=== PATIENT | male | born 1955 | race Caucasian/White ===

== ENCOUNTER 2018-08-31 08:25 | Emergency (ER) | payer SELFPAY ==
[2018-08-31 09:25] LABS: #Eosinphils 0.2 thou/uL (0.0-0.7); #Lymphocytes 1.2 thou/uL (1.20-3.40); #Monocytes 0.5 thou/uL (0.11-0.59); #Neutrophils 4.2 thou/uL (1.40-6.50); %Basophils 0.4 % (0.0-1.0); %Eosinophils 2.9 % (0.0-10.0); %Monocytes 8.5 % (0.0-10.0); %Neutrophils 68.3 % (42.0-75.0); Hemoglobin 17.6 g/dL (14.0-18.0); Mean Corpuscular HGB CONC 32.5 g/dL (32.0-36.0); Mean Corpuscular Volume 95.6 fL (78.0-98.0); Mean Platelet Volume 6.9 fL (7.4-10.4); Platelet Count 271 thou/uL (130-400); RBC Distribution Width 12.8 % (11.5-14.5); Red Blood Cell (RBC) Count 5.66 mill/uL (4.70-6.10); White Blood Cell (WBC) Count 6.2 thou/uL (4.8-10.8)
[2018-08-31 09:48] LABS: ALT (SGPT) 29 U/L (8-55); AST (SGOT) 31 U/L (5-34); Albumin 4.5 g/dL (3.4-4.8); Alkaline Phosphatase 78 U/L (40-150); Anion Gap 12 mmol/L (10-20); BUN (Urea Nitrogen) 9 mg/dL (8.4-25.7); Bilirubin, Total 0.3 mg/dL (0.2-1.2); Calc. Creatinine Clearance 0 mL/min (70-130); Calcium 9.8 mg/dL (7.8-10.44); Carbon Dioxide 23 mmol/L (23-31); Chloride 106 mmol/L (98-107); Estimated GFR-MDRD Greater than 90; Globulin 3.6 g/dL (2.4-3.5); Glucose 98 mg/dL (80-115); Potassium 3.9 mmol/L (3.5-5.1); Protein, Total 8.1 g/dL (5.8-8.1); Sodium 137 mmol/L (136-145)
[2018-08-31] MEDS ORDERED: Clindamycin/D5W 600 mg/50 ml Premix Bag ONE (10:05)
--- NOTE | 2018-08-31 10:05 | RAD ---
FOUR VIEWS OF THE LEFT KNEE: DATE: 08/31/2018. COMPARISON: None. HISTORY: Peripheral vascular disease, not on the knee. FINDINGS: There is a round soft tissue density along the medial aspect of the left knee medial to the mediofemo ral condyle and medial tibial plateau. Lateral exam demonstrates no knee joint effusion. There is p atellofemoral joint space narrowing with mild posterior patellar osteophyte formation. There is mode rate lateral compartment narrowing and severe medial compartment narrowing. IMPRESSION: 1. Soft tissue mass density along the medial aspect of left knee measuring in the 2.8 x 10.5 cm rang e. This could be on the basis of neoplasia or an inflammatory/infectious process. Hematoma is a pos sibility as well. 2. No evidence for acute fracture or dislocation. Degenerative changes as detailed above. 3. MRI of the left knee is suggested for further assessment. CODE T POS: [facility]
--- NOTE | 2018-08-31 11:32 | CT ---
CT OF THE LEFT LOWER EXTREMITY WITH CONTRAST: INDICATION: Pain when walking, palpable knot/mass of the left lower extremity. FINDINGS: There is a multiloculated cystic mass of the medial left lower extremity centered about the region of the knee which does arise, interposed between the medial head of the gastrocnemius ad the semimembra nosus in a location typical for Jordan's cyst. Surrounding soft tissue edema is present. There is a thin linear hyperdensity of the wall ad septae indicating enhancement, although no mass-like internal nodular enhancement is present within the cystic mass. There is osseous degenerative change. There is vascular calcification. There is a small ossification just medial to the cystic mass measuring a pproximately 8 mm which may represent the flabella. 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 POS: [facility]
[2018-08-31] MEDS ORDERED: ISOVUE-370 76%-LOCM 1 ML ONE (15:13)
== END 2018-08-31 11:53 | disposition home or self-care (01) ==
LOC: ERS 08:25
DX: M71.22 Synovial cyst of popliteal space [Baker], left knee (principal); L03.115 Cellulitis of right lower limb; E03.9 Hypothyroidism, unspecified; E78.5 Hyperlipidemia, unspecified; I10 Essential (primary) hypertension; F41.9 Anxiety disorder, unspecified; F31.9 Bipolar disorder, unspecified; F20.9 Schizophrenia, unspecified; Z86.718 Personal history of other venous thrombosis and embolism
CPT/HCPCS: 80053; 85025; 96365; J3490

== ENCOUNTER 2018-10-17 10:07 | Inpatient (IN) | payer SELFPAY ==
[2018-10-17] MEDS ORDERED: Morphine 4 MG/ML VIAL ONE (10:52)
[2018-10-17] MEDS ORDERED: Morphine 2 MG/ML SYRINGE ONE (10:54)
[2018-10-17 10:57] LABS: #Basophils 0.1 thou/uL (0.0-0.2); #Eosinphils 0.1 thou/uL (0.0-0.7); #Lymphocytes 1.9 thou/uL (1.20-3.40); #Monocytes 0.9 thou/uL (0.11-0.59); #Neutrophils 6.2 thou/uL (1.40-6.50); %Basophils 0.6 % (0.0-1.0); %Eosinophils 1.3 % (0.0-10.0); %Lymphocytes 21.1 % (21.0-51.0); %Monocytes 9.6 % (0.0-10.0); %Neutrophils 67.5 % (42.0-75.0); Hemoglobin 17.6 g/dL (14.0-18.0); Mean Corpuscular HGB CONC 32.5 g/dL (32.0-36.0); Mean Corpuscular Hemoglobin 30.3 pg (27.0-31.0); Mean Platelet Volume 6.5 fL (7.4-10.4); Platelet Count 319 thou/uL (130-400); RBC Distribution Width 12.7 % (11.5-14.5); Red Blood Cell (RBC) Count 5.82 mill/uL (4.70-6.10); White Blood Cell (WBC) Count 9.2 thou/uL (4.8-10.8)
[2018-10-17 11:17] LABS: Anion Gap 17 mmol/L (10-20); BUN (Urea Nitrogen) 9 mg/dL (8.4-25.7); Calc. Creatinine Clearance 0 mL/min (70-130); Calcium 9.5 mg/dL (7.8-10.44); Carbon Dioxide 16 mmol/L (23-31); Chloride 108 mmol/L (98-107); Estimated GFR-MDRD Greater than 90; Glucose 112 mg/dL (80-115); Potassium 3.8 mmol/L (3.5-5.1); Sodium 137 mmol/L (136-145)
[2018-10-17] MEDS ORDERED: MEROPENEM 1 GM/50 ML 1 GM in Premix Bag 1 BAG IVPB SCH ×2 (11:30→20:00)
--- NOTE | 2018-10-17 11:59 | RAD ---
RIGHT ANKLE 3 VIEWS: HISTORY: Non-healing wound to the ankle. COMPARISON: Ankle radiograph from 2009. FINDINGS: There is an old posterior malleolar fracture. There is a large wound on the lateral aspect of the di stal fibula. There is some periosteal reaction along the distal fibula laterally as well as the bila teral malleolar tip. There is mild medial soft tissue swelling. IMPRESSION: Chronic periosteal reaction of the lateral aspect of the distal fibula may be sequelae of chronic ost eomyelitis. Large overlying soft tissue ulcer. POS: [facility]
[2018-10-17 12:02] LABS: Bilirubin Negative (Negative); Blood, Urine Negative (Negative); Clarity CLEAR (Clear); Glucose, Urine (Dipstick) Negative (Negative); Leukocyte Negative (Negative); Nitrite Negative (Negative); Protein, Urine (Dipstick) Negative (Neg-Trace); Specific Gravity, Urine 1.001 (1.002-1.036); Urobilinogen 0.2 mg/dL (0.2-1.0); pH, Urine 6.5 (5.0-9.0)
[2018-10-17 12:49] VITALS: BMI 28.4
[2018-10-17] MEDS ORDERED: Ondansetron ODT 4 MG TAB SL PRN (12:52)
[2018-10-17] MEDS ORDERED: Ondansetron PF 4 MG/2 ML Vial IVP PRN ×2 (12:52→13:01)
[2018-10-17] MEDS ORDERED: Acetaminophen 325 MG TAB PO PRN ×2 (12:52→13:01)
[2018-10-17] MEDS ORDERED: Sodium Chloride 0.9% 1,000 ML IV SCH (12:52)
[2018-10-17] MEDS ORDERED: Bisacodyl 10 MG SUPP PR PRN (13:01)
[2018-10-17] MEDS ORDERED: Cepastat Lozenges 1 LOZ PO PRN (13:01)
[2018-10-17] MEDS ORDERED: Eucerin (Mineral Oil/Petrolatum,White) 30 gm Jar TOP PRN (13:01)
[2018-10-17] MEDS ORDERED: hydrALAZINE 20 MG/ML VIAL SLOW IVP PRN (13:01)
[2018-10-17] MEDS ORDERED: Senokot S 8.6-50 MG TAB PO PRN (13:01)
[2018-10-17] MEDS ORDERED: Loperamide HCl 2 MG CAP PO PRN (13:01)
[2018-10-17] MEDS ORDERED: Ondansetron ODT 4 MG TAB PO PRN (13:01)
[2018-10-17] MEDS ORDERED: Diabetic Tussin 200 MG/10 ML UDCUP PO PRN (13:01)
[2018-10-17] MEDS ORDERED: Artificial Tears 18 DROP/0.9 ML EA EYE PRN (13:01)
[2018-10-17] MEDS ORDERED: Bisacodyl 5 MG TAB PO PRN (13:01)
[2018-10-17] MEDS ORDERED: Sodium Chloride 0.65% Nasal 44 ML BOT EA NARE PRN (13:01)
[2018-10-17] MEDS ORDERED: Zolpidem Tartrate 5 MG TAB PO PRN (13:01)
[2018-10-17] MEDS ORDERED: Calcium Carbonate 500 MG ChewTAB PO PRN (13:01)
[2018-10-17] MEDS ORDERED: Loratadine 10 MG TAB PO PRN (13:01)
[2018-10-17] MEDS ORDERED: Vancomycin HCl 1 GM in Premix Bag 1 BAG IVPB SCH (13:30)
--- NOTE | 2018-10-17 13:42 | HP ---
PRIMARY CARE PHYSICIAN: City call admission. REASON FOR ADMISSION: Right ankle bimalleolar ulcer, nonhealing with surrounding cellulitis. HISTORY OF PRESENT ILLNESS: A 63-year-old male who has a history of varicose veins, who presented to emergency room for evaluation for worsening and nonhealing ulcer on bimalleolar site on the right si de. Patient has a significant amount of pain and propping in his ankle for the last one week and bec ause of that, he has difficulty ambulating. The patient is doing routine wound care at home by himse lf, but condition is getting deteriorated. He also noticed erythema and surrounding swelling and ten derness on bilateral and medial side of ankle on the right side. He was feeling subjective feverish, but he denies any chills. He denies any associated nausea or vomiting. He has not measured his tem perature, so he is not able to tell me about the fever. Patient is following [facility]. Th e patient is not able to follow wound care team. In the emergency room, this patient had ankle x-ray which showed chronic periosteal reaction of the l ateral aspect of distal fibula and concerning for chronic osteomyelitis and large overlying soft tiss ue ulcer. This patient reports that ulcer was gradually getting weaker and now draining serosanguine ous and sometimes purulent fluid. His intensity of pain is about 10/10 getting worse with walking. There is no specific relieving factor. In the emergency room, pain medication was given that helped his pain. He denies any trauma. He denies any insect bite. He denies any similar problem in the tx st. REVIEW OF SYSTEMS: The following complete review of systems was negative, unless otherwise mentioned in the HPI or below: Constitutional: Weight loss or gain, ability to conduct usual activities. Skin: Rash, itching. Eyes: Double vision, pain. ENT/Mouth: Nose bleeding, neck stiffness, pain, tenderness. Cardiovascular: Palpitations, dyspnea on exertion, orthopnea. Respiratory: Shortness of breath, wheezing, cough, hemoptysis, fever or night sweats. Gastrointestinal: Poor appetite, abdominal pain, heartburn, nausea, vomiting, constipation, or diarr hea. Genitourinary: Urgency, frequency, dysuria, nocturia. Musculoskeletal: Pain, swelling. Neurologic/Psychiatric: Anxiety, depression. Allergy/Immunologic: Skin rash, bleeding tendency. Please see my HPI for pertinent positive and negative. All other review of systems reviewed and nega tive except as mentioned in the HPI. EMERGENCY ROOM COURSE: Patient has received meropenem 1 gram, vancomycin 1 gram, IV fluid 1 liter an d morphine 4 mg. PAST MEDICAL HISTORY: Hypertension, dyslipidemia, history of varicose vein, history of alcohol abuse , history of dipping tobacco, hypothyroidism. PAST SURGICAL HISTORY: Reviewed and negative. PAST PSYCHIATRIC HISTORY: Anxiety, depression, schizophrenia, bipolar disorder. SOCIAL HISTORY: Patient used to smoke about 1 pack per day. He reports that he quit smoking 10 year s ago, but currently he chews tobacco. He used to drink alcohol in past, but he also reports that he now quit drinking alcohol as well. He denies any other illicit drug abuse. ALLERGIES: No known drug allergy. CURRENT HOME MEDICATIONS: The patient does not have any medication with him, so unable to verify his home medication; however, as per our hospital record from 2013, patient was on Celexa 40 mg p.o. moreno ly, Synthroid 50 mcg p.o. daily, Lopressor 12.5 mg twice daily, Zocor 40 mg p.o. at bedtime. FAMILY HISTORY: Mother had breast cancer, but no family history of coronary artery disease or stroke . PHYSICAL EXAMINATION: VITAL SIGNS: On arrival, blood pressure 164/118, pulse 101, respiratory rate 20, temperature 97.4, s aturation 96% on room air, weight 99.7 kilograms. GENERAL: Patient is currently alert, awake, no obvious acute distress. HEAD: Normocephalic, atraumatic. EYES: Pupils round, reactive to light. Extraocular muscle intact. ENT: Oropharynx within normal limits. Moist mucous membranes, no oral lesion, no pharyngeal erythem a, no exudate. NECK: Supple, no JVD, no thyromegaly, no carotid bruit, no jugular venous distention. LUNGS: Clear to auscultation without any rhonchi or rales. CARDIAC: S1, S2 regular. No murmur, no gallop, no rub. ABDOMEN: Soft, bowel sounds present, nontender, nondistended. No organomegaly, no mass, no suprapub ic tenderness. BACK: Examination unremarkable, no CVA tenderness. EXTREMITIES: Upper extremity passive movements of all joints are normal. Lower extremity, left lowe r extremity within normal limits without any skin lesion, but right lower extremity patient has large 5 x 5 cm ulcer on both malleoli with surrounding cellulitis/stasis dermatitis. NEUROLOGIC: Patient is alert, oriented x3. Cranial nerves II-XII intact. Motor and sensation withi n normal limits. No focal neurological deficits. Speech normal. SKIN: No skin rash other than surrounding erythema, tenderness on both malleoli of right foot. ABDOMEN: Soft and benign without any tenderness. 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 CBC: WBC 9.2, hemoglobin 17.6, platelet 3 19. ESR 14. BMP: Sodium 137, potassium 3.8, BUN 9, creatinine 0.84, calcium 9.5, CRP less than 0.5 0. Lactic acid 2.3. Urinalysis normal. ASSESSMENT AND PLAN/IMPRESSION: 1. Right ankle bimalleolar ulcer, nonhealing with the surrounding cellulitis. Patient will require admission. He will need wound care team evaluation. Dr. Tejada will be consulted to evaluate for pos sible need of surgical debridement versus further evaluation. We will obtain ultrasound of both lowe r extremities to rule out any peripheral arterial disease and to see if patient needs any further rev ascularization, but suspecting venous problem. At this point, patient will be given broad spectrum a ntibiotic therapy, meropenem 1 gram IV q.8 hours., vancomycin as per pharmacy adjusted dose and we wi ll continue morphine for pain control. 2. Lactic acidosis, likely due to associated skin and soft tissue infection with sepsis. We will re peat lactic acid tomorrow. 3. Hypothyroidism. Once we verify the patient's home medication and we will resume Synthroid. 4. Hypertension. We will start lisinopril 5 mg p.o. daily and metoprolol 25 mg p.o. twice daily. 5. Dyslipidemia. We will start Zocor 40 mg p.o. at bedtime. 6. Anxiety and depression. Once we verify the patient's home medication, then we will resume antide pressant medication. 7. Lactic acidosis. We will repeat lactic acid tomorrow. 8. Concern of chronic osteomyelitis. Dr. Tejada is consulted. At this point, ESR and CRP is within normal limits. I doubt patient has any bony infection, but cannot be entirely excluded. 9. Deep venous thrombosis prophylaxis, Lovenox 40 mg subcu daily. 10. Gastrointestinal prophylaxis, Pepcid 20 mg p.o. b.i.d. 11. Code status: The patient is FULL CODE. Patient does not have any surrogate decision maker. 12. Tobacco abuse with the dipping smoking cessation as well as some counseling given to avoid tobac co products. Disposition plan based on clinical course. We are expecting patient's stay in hospital more than 2 m idnights. Plan of care discussed with the patient in detail.
[2018-10-17] MEDS ORDERED: Meropenem 1 GM in Sodium Chloride 0.9% 100 ML IVPB SCH (14:00)
[2018-10-17] MEDS: HYDROcodone/Acetaminophen 5/325 mg Tablet PO PRN ×2 (14:16→23:54)
[2018-10-17 15:13] LABS: Lactic Acid 2.4 mmol/L (0.5-2.2)
[2018-10-17] MEDS: Morphine 4 MG/ML VIAL SLOW IVP PRN (18:12)
[2018-10-17] MEDS: MEROPENEM 1 GM/50 ML 1 GM in Premix Bag 1 BAG IVPB SCH (20:00)
[2018-10-17] MEDS: Famotidine 20 MG TAB PO SCH (20:03)
[2018-10-18] MEDS: MEROPENEM 1 GM/50 ML 1 GM in Premix Bag 1 BAG IVPB SCH ×3 (05:06→20:47)
[2018-10-18 05:39] LABS: #Basophils 0.1 thou/uL (0.0-0.2); #Eosinphils 0.3 thou/uL (0.0-0.7); #Lymphocytes 1.4 thou/uL (1.20-3.40); #Monocytes 0.6 thou/uL (0.11-0.59); #Neutrophils 3.9 thou/uL (1.40-6.50); %Eosinophils 4.1 % (0.0-10.0); %Lymphocytes 22.3 % (21.0-51.0); %Monocytes 10.1 % (0.0-10.0); %Neutrophils 62.4 % (42.0-75.0); Hemoglobin 16.7 g/dL (14.0-18.0); Mean Corpuscular HGB CONC 33.2 g/dL (32.0-36.0); Mean Corpuscular Hemoglobin 30.8 pg (27.0-31.0); Mean Corpuscular Volume 92.6 fL (78.0-98.0); Mean Platelet Volume 6.9 fL (7.4-10.4); Platelet Count 279 thou/uL (130-400); RBC Distribution Width 12.5 % (11.5-14.5); Red Blood Cell (RBC) Count 5.44 mill/uL (4.70-6.10); White Blood Cell (WBC) Count 6.2 thou/uL (4.8-10.8)
[2018-10-18 05:57] LABS: Lactic Acid 0.8 mmol/L (0.5-2.2)
[2018-10-18 06:06] LABS: ALT (SGPT) 13 U/L (8-55); AST (SGOT) 15 U/L (5-34); Albumin 3.4 g/dL (3.4-4.8); Alkaline Phosphatase 74 U/L (40-150); Anion Gap 11 mmol/L (10-20); BUN (Urea Nitrogen) 7 mg/dL (8.4-25.7); Bilirubin, Total 0.7 mg/dL (0.2-1.2); Calc. Creatinine Clearance 141 mL/min (70-130); Calcium 8.7 mg/dL (7.8-10.44); Carbon Dioxide 23 mmol/L (23-31); Chloride 108 mmol/L (98-107); Estimated GFR-MDRD Greater than 90; Globulin 3.2 g/dL (2.4-3.5); Glucose 106 mg/dL (80-115); Potassium 3.7 mmol/L (3.5-5.1); Protein, Total 6.6 g/dL (5.8-8.1); Sodium 138 mmol/L (136-145)
[2018-10-18] MEDS: Enoxaparin Sodium 40 MG/0.4 ML SYRINGE SC SCH (07:33)
[2018-10-18] MEDS: Saccharomyces boulardii 250 MG CAP PO SCH (07:34)
[2018-10-18] MEDS: Famotidine 20 MG TAB PO SCH ×2 (07:34→20:48)
[2018-10-18] MEDS: HYDROcodone/Acetaminophen 5/325 mg Tablet PO PRN ×4 (07:39→23:43)
[2018-10-18] MEDS: Morphine 4 MG/ML VIAL SLOW IVP PRN ×4 (07:41→20:50)
--- NOTE | 2018-10-18 10:50 | PDOC.PN ---
- Subjective Encounter Start Date: 10/18/18 Encounter Start Time: 09:50 -: old records requested/rev Patient seen and examined. No new complaints. No overnight events today he has less pain at right ankle, no fever - Objective Resuscitation Status: Resuscitation Status FULL:Full Resuscitation MAR Reviewed: Yes Vital Signs & Weight: Vital Signs (12 hours) Temp Pulse Resp BP Pulse Ox 10/18/18 08:00 96 10/18/18 07:46 97.7 F 68 20 147/89 H 96 Weight Weight 218 lb 11.2 oz I&O: 10/17/18 10/18/18 10/19/18 06:59 06:59 06:59 Intake Total 1400 Output Total 1450 Balance -50 Result Diagrams: 10/18/18 04:41 10/18/18 04:41 Radiology Reviewed by me: Yes Phys Exam - Physical Examination Constitutional: NAD HEENT: PERRLA, moist MMs, sclera anicteric Neck: no JVD, supple Respiratory: no wheezing, no rales, no rhonchi Cardiovascular: RRR, no significant murmur, no rub Gastrointestinal: soft, non-tender, no distention, positive bowel sounds right ankle dressing+ Neurological: non-focal, normal sensation, moves all 4 limbs Lymphatic: no nodes Psychiatric: normal affect, A&O x 3 Skin: no rash, normal turgor Dx/Plan (1) Cellulitis of right ankle Code(s): L03.115 - CELLULITIS OF RIGHT LOWER LIMB Status: Acute (2) Lactic acidosis Code(s): E87.2 - ACIDOSIS Status: Acute (3) Non-healing ulcer of ankle Code(s): L97.309 - NON-PRESSURE CHRONIC ULCER OF UNSP ANKLE WITH UNSP SEVERITY Status: Acute (4) Anxiety and depression Code(s): F41.9 - ANXIETY DISORDER, UNSPECIFIED; F32.9 - MAJOR DEPRESSIVE DISORDER, SINGLE EPISODE, UNSPECIFIED Status: Chronic (5) Dyslipidemia Code(s): E78.5 - HYPERLIPIDEMIA, UNSPECIFIED Status: Chronic (6) Hypertension Code(s): I10 - ESSENTIAL (PRIMARY) HYPERTENSION Status: Chronic (7) Hypothyroidism Code(s): E03.9 - HYPOTHYROIDISM, UNSPECIFIED Status: Chronic (8) PVD (peripheral vascular disease) Code(s): I73.9 - PERIPHERAL VASCULAR DISEASE, UNSPECIFIED Status: Chronic (9) Tobacco chew use Code(s): Z72.0 - TOBACCO USE Status: Chronic - Plan cont current plan of care, continue antibiotics * US arterial doppler result pending * medication reviewed as below * symptomatic treatment * continue meropenam and vancomycin * wound care * ID consulted. Review of Systems - Review of Systems ENT: negative: Ear Pain, Ear Discharge, Nose Pain, Nose Discharge, Nose Congestion, Mouth Pain, Mouth Swelling, Throat Pain, Throat Swelling, Other Respiratory: negative: Cough, Dry, Shortness of Breath, Hemoptysis, SOB with Excertion, Pleuritic Pain, Sputum, Wheezing Cardiovascular: negative: chest pain, palpitations, orthopnea, paroxysmal nocturnal dyspnea, edema, light headedness, other Gastrointestinal: negative: Nausea, Vomiting, Abdominal Pain, Diarrhea, Constipation, Melena, Hematochezia, Other Genitourinary: negative: Dysuria, Frequency, Incontinence, Hematuria, Retention , Other Musculoskeletal: Foot Pain. negative: Neck Pain, Shoulder Pain, Arm Pain, Back Pain, Hand Pain, Leg Pain, Other Skin: negative: Rash, Lesions, Timo, Bruising, Other - Medications/Allergies Allergies/Adverse Reactions: Allergies Allergy/AdvReac Type Severity Reaction Status Date / Time No Known Allergies Allergy Verified 10/17/18 12:56 Medications: Current Medications Acetaminophen (Tylenol) 650 mg PO Q4H PRN PRN Reason: Headache/Fever/Mild Pain (1-3) Hydrocodone Bitart/Acetaminophen ([place] 5/325) 1 tab PO Q4H PRN PRN Reason: Moderate Pain (4-6) Last Admin: 10/18/18 07:39 Dose: 1 tab Artificial Tears (Tears Naturale) 2 drop EA EYE PRN PRN PRN Reason: Dry Eyes Bisacodyl (Dulcolax) 10 mg PO DAILYPRN PRN PRN Reason: Constipation Bisacodyl (Dulcolax) [address] DAILYPRN PRN PRN Reason: Constipation Calcium Carbonate (Tums) 1,000 mg PO Q4H PRN PRN Reason: Heartburn or Indigestion Enoxaparin Sodium (Lovenox) 40 mg SC 0900 [facility] Last Admin: 10/18/18 07:33 Dose: 40 mg Famotidine (Pepcid) 20 mg PO BID [facility] Last Admin: 10/18/18 07:34 Dose: 20 mg Guaifenesin (Robitussin Sf) 200 mg PO Q4H PRN PRN Reason: Cough Hydralazine HCl (Apresoline) 10 mg SLOW IVP Q4H PRN PRN Reason: SBP > 180 and HR < 70 Meropenem 1 gm/ Device 50 mls @ 100 mls/hr IVPB 0400,1200,2000 [facility] Last Admin: 10/18/18 05:06 Dose: 50 mls Vancomycin HCl 2 gm/ Sodium (Chloride) 500 mls @ 250 mls/hr IVPB 1100,2300 [facility] Last Admin: 10/18/18 10:34 Dose: 500 mls Loperamide HCl (Imodium) 2 mg PO PRN PRN PRN Reason: Diarrhea/Loose Stools Loratadine (Claritin) 10 mg PO DAILYPRN PRN PRN Reason: Sinus Symptoms Mineral Oil/White Petrolatum (Eucerin Cream) 0 gm TOP BIDPRN PRN PRN Reason: Dry Skin Miscellaneous Medication (Pharmacy To Dose) 1 each IVPB ONE PRN PRN Reason: Pharmacy to dose Stop: 10/27/18 13:02 Morphine Sulfate (Morphine) 4 mg SLOW IVP Q2H PRN PRN Reason: Pain Last Admin: 10/18/18 07:41 Dose: 4 mg Ondansetron HCl (Zofran Odt) 4 mg PO Q6H PRN PRN Reason: Nausea/Vomiting Ondansetron HCl (Zofran) 4 mg IVP Q6H PRN PRN Reason: Nausea/Vomiting Saccharomyces Boulardii (Florastor) 250 mg PO DAILY [facility] Last Admin: 10/18/18 07:34 Dose: 250 mg Senna/Docusate Sodium (Senokot S) 2 tab PO BID PRN PRN Reason: Constipation Sodium Chloride ([place] Nasal [employer] 0.65%) 0 ml EA NARE QIDPRN PRN PRN Reason: Nasal Congestion Throat Lozenges (Cepastat Lozenges) 1 debra PO Q2H PRN PRN Reason: Sore Throat Zolpidem Tartrate (Ambien) 5 mg PO HSPRN PRN PRN Reason: Insomnia
--- NOTE | 2018-10-18 21:16 | CON ---
REASON FOR CONSULTATION: Ulcers, right ankle with questionable osteomyelitis. HISTORY OF PRESENT ILLNESS: A 63-year-old patient with history of hypertension and venous insufficiency with varicose veins, right lower extremity, alcoholism and prior ulcers in the right ankle, which have waxed and waned over the past few years. He usually has an ulcer in the medial aspect, but now has noticed another one in the right lateral malleolus region, very painful for the past few weeks. The patient was admitted because of the refractory nature of those ulcers, some erythema associated with it, low grade temperature elevation, but no chills. No headaches, visual symptoms, sore throat, odynophagia, dysphagia, no cough or sputum production or chest pain, no abdominal pain, diarrhea, or genitourinary symptoms. No neurological symptoms. PAST MEDICAL HISTORY: Hypertension, dyslipidemia, venous insufficiency with varicose veins, right lower extremity, alcoholism and former smoker. PAST SURGICAL HISTORY: Negative. SOCIAL HISTORY: Former smoker. ALLERGIES: None. FAMILY HISTORY: Breast cancer. CURRENT MEDICATIONS: [place], Dulcolax, Tums, Lovenox, Pepcid, Imodium, Claritin , meropenem, vancomycin PHYSICAL EXAMINATION: VITAL SIGNS: T-max 97.9, BP 140/89, pulse 68, respirations 18, O2 sat 95%. SKIN: Ulceration, medial and lateral malleolus, right leg, with a little bit of edge undermining and a yellow base surrounding rim of erythema about 3 cm, very painful, the patient is voiding in the urinal. No lymphadenopathy. HEENT: Ocular movements are conjugate. Oral cavity not remarkable. NECK: Supple, no jugular vein distention or carotid bruits, no thyromegaly. LUNGS: Symmetric. Clear breath sounds. HEART: S1, S2, regular rate. No S3 or S4. ABDOMEN: Soft, not distended or tender. No bladder distention, no organomegaly. EXTREMITIES: Pulses are 1+ in dorsalis pedis, and 1+ in popliteals. He is able to move extremities equally with some limitation due to the inflammatory process in the right side. NEUROLOGIC: Nonfocal. Cognitive function is intact. LABORATORY DATA: White cell count 9.2, hemoglobin 17.6, platelets 319 with a normal differential. Sodium 137, creatinine 0.84. Liver profile normal. Albumin 3.4. Urinalysis was fairly unremarkable. Wound culture with presumptive Pseudomonas aeruginosa. Two sets of blood cultures thus far no growth. Ankle x-ray, chronic periosteal reaction, lateral aspect of distal fibula. ASSESSMENT: Hypertension, venous insufficiency with recurring ulcerations in the right medial malleolus and now, ulcerations in both lateral and medial malleolus with pain and inflammatory changes and concern for early osteomyelitis of the fibula. We will order an MRI to clarify the issue of a deeper penetration of the inflammatory process. Wait on final results of cultures and determine the type and duration of antimicrobial therapy. He does not appear that he has any evidence of arterial insufficiency and most likely the ulcerations are secondary to venous insufficiency. In that regard, compression of the right leg would be important in the healing of the ulcer, but first we will have to improve the pain through treating the inflammatory process associated with cellulitis. USMAN
[2018-10-18 22:29] LABS: Vancomycin, Trough 18.4 ug/mL
[2018-10-19] MEDS: Morphine 4 MG/ML VIAL SLOW IVP PRN ×5 (04:43→18:02)
[2018-10-19] MEDS: MEROPENEM 1 GM/50 ML 1 GM in Premix Bag 1 BAG IVPB SCH ×3 (04:43→20:06)
[2018-10-19] MEDS: HYDROcodone/Acetaminophen 5/325 mg Tablet PO PRN ×3 (05:54→20:12)
[2018-10-19] MEDS: Saccharomyces boulardii 250 MG CAP PO SCH (08:17)
[2018-10-19] MEDS: Enoxaparin Sodium 40 MG/0.4 ML SYRINGE SC SCH (08:17)
[2018-10-19] MEDS: Famotidine 20 MG TAB PO SCH ×2 (08:17→20:07)
--- NOTE | 2018-10-19 08:20 | ULT ---
BILATERAL LOWER EXTREMITY ARTERIAL ULTRASOUND WITH DOPPLER: 10/17/18 HISTORY: Nonhealing ulcer in the right leg. COMPARISON: None. TECHNIQUE: Fuentes scale, color flow, doppler imaging with spectral waveform analysis performed to the left and rig ht lower extremity arterial system. FINDINGS: RIGHT LOWER EXTREMITY: There is triphasic flow in the common femoral artery, proximal mid and distal superficial femoral art cara, popliteal artery, anterior tibial artery, posterior tibial artery and dorsalis pedis artery. The re is monophasic flow in the profunda femoral artery. LEFT LOWER EXTREMITY: There is triphasic flow in the common femoral artery, proximal and mid superficial femoral artery, po pliteal artery, anterior tibial artery, posterior tibial artery. There is monophasic flow in the prof unda femoral artery. There is biphasic flow in the distal superficial femoral artery and dorsalis ped is artery. Left popliteal fossa, there is a complex hypoechoic focus measuring 4.7 x 4.5 x 6.4 cm. There appears to be a thickened septation. Correlate with previous CT from August 31, 2018. LOWER EXTREMITY VELOCITIES: RIGHT LOWER EXTREMITY Velocity (cm/s) Common femoral artery 175 Profunda femoral 108 SFA proximal 126 SFA mid 140 SFA distal 75 Popliteal artery 78 Anterior tibial artery 109 Posterior tibial artery 118 Dorsalis pedis artery 92 LEFT LOWER EXTREMITY: Common femoral artery 220 Profunda femoral 75 SFA proximal 96 SFA mid 120 SFA distal 61 Popliteal artery 96 Anterior tibial artery 46 Posterior tibial artery 100 Dorsalis pedis artery 27 IMPRESSION: 1. Monophasic flow suggesting significant stenosis in bilateral profunda femoral arteries. There is significant narrowing and stenosis in the left dorsalis pedis artery. 2. Findings suggesting significant stenosis in the distal left superficial femoral artery. POS: [facility]
[2018-10-19] MEDS ORDERED: Gadobenate Dimeglumine 529 MG/1 ML (20ML VIAL) ONE (11:57)
--- NOTE | 2018-10-19 12:50 | PDOC.PN ---
- Subjective Encounter Start Date: 10/19/18 Encounter Start Time: 07:00 Patient seen and examined. No new complaints. No overnight events pt feels better, he has less pain, no fever - Objective Resuscitation Status: Resuscitation Status FULL:Full Resuscitation MAR Reviewed: Yes Vital Signs & Weight: Vital Signs (12 hours) Temp Pulse Resp BP Pulse Ox 10/19/18 08:00 96 10/19/18 07:33 97.6 F 69 18 146/86 H 93 L Weight Weight 218 lb 11.2 oz I&O: 10/18/18 10/19/18 10/20/18 06:59 06:59 06:59 Intake Total 1400 3220 Output Total 1450 1300 Balance -50 1920 Result Diagrams: 10/18/18 04:41 10/18/18 04:41 Phys Exam - Physical Examination Constitutional: NAD HEENT: PERRLA, moist MMs, sclera anicteric Neck: no JVD, supple Respiratory: no wheezing, no rales, no rhonchi Cardiovascular: RRR, no significant murmur, no rub Gastrointestinal: soft, non-tender, no distention, positive bowel sounds Musculoskeletal: no edema, pulses present right ankle with dressing Neurological: non-focal, normal sensation, moves all 4 limbs Lymphatic: no nodes Psychiatric: normal affect, A&O x 3 Skin: no rash, normal turgor Dx/Plan (1) Cellulitis of right ankle Code(s): L03.115 - CELLULITIS OF RIGHT LOWER LIMB Status: Acute (2) Non-healing ulcer of ankle Code(s): L97.309 - NON-PRESSURE CHRONIC ULCER OF UNSP ANKLE WITH UNSP SEVERITY Status: Acute (3) Lactic acidosis Code(s): E87.2 - ACIDOSIS Status: Resolved (4) Anxiety and depression Code(s): F41.9 - ANXIETY DISORDER, UNSPECIFIED; F32.9 - MAJOR DEPRESSIVE DISORDER, SINGLE EPISODE, UNSPECIFIED Status: Chronic (5) Dyslipidemia Code(s): E78.5 - HYPERLIPIDEMIA, UNSPECIFIED Status: Chronic (6) Hypertension Code(s): I10 - ESSENTIAL (PRIMARY) HYPERTENSION Status: Chronic (7) Hypothyroidism Code(s): E03.9 - HYPOTHYROIDISM, UNSPECIFIED Status: Chronic (8) PVD (peripheral vascular disease) Code(s): I73.9 - PERIPHERAL VASCULAR DISEASE, UNSPECIFIED Status: Chronic (9) Tobacco chew use Code(s): Z72.0 - TOBACCO USE Status: Chronic - Plan cont current plan of care, continue antibiotics * medication reviewed as below * symptomatic treatment * continue meropenam and vancomycin * ID recommendation noted * will get MRI LE today * wound care * pain controlled. Review of Systems - Review of Systems ENT: negative: Ear Pain, Ear Discharge, Nose Pain, Nose Discharge, Nose Congestion, Mouth Pain, Mouth Swelling, Throat Pain, Throat Swelling, Other Respiratory: negative: Cough, Dry, Shortness of Breath, Hemoptysis, SOB with Excertion, Pleuritic Pain, Sputum, Wheezing Cardiovascular: negative: chest pain, palpitations, orthopnea, paroxysmal nocturnal dyspnea, edema, light headedness, other Gastrointestinal: negative: Nausea, Vomiting, Abdominal Pain, Diarrhea, Constipation, Melena, Hematochezia, Other Genitourinary: negative: Dysuria, Frequency, Incontinence, Hematuria, Retention , Other Musculoskeletal: negative: Neck Pain, Shoulder Pain, Arm Pain, Back Pain, Hand Pain, Leg Pain, Foot Pain, Other Skin: negative: Rash, Lesions, Timo, Bruising, Other - Medications/Allergies Allergies/Adverse Reactions: Allergies Allergy/AdvReac Type Severity Reaction Status Date / Time No Known Allergies Allergy Verified 10/17/18 12:56 Medications: Current Medications Acetaminophen (Tylenol) 650 mg PO Q4H PRN PRN Reason: Headache/Fever/Mild Pain (1-3) Hydrocodone Bitart/Acetaminophen ([place] 5/325) 1 tab PO Q4H PRN PRN Reason: Moderate Pain (4-6) Last Admin: 10/19/18 11:43 Dose: 1 tab Artificial Tears (Tears Naturale) 2 drop EA EYE PRN PRN PRN Reason: Dry Eyes Bisacodyl (Dulcolax) 10 mg PO DAILYPRN PRN PRN Reason: Constipation Bisacodyl (Dulcolax) 10 mg [place] DAILYPRN PRN PRN Reason: Constipation Calcium Carbonate (Tums) 1,000 mg PO Q4H PRN PRN Reason: Heartburn or Indigestion Enoxaparin Sodium (Lovenox) 40 mg SC 0900 [facility] Last Admin: 10/19/18 08:17 Dose: 40 mg Famotidine (Pepcid) 20 mg PO BID [facility] Last Admin: 10/19/18 08:17 Dose: 20 mg Guaifenesin (Robitussin Sf) 200 mg PO Q4H PRN PRN Reason: Cough Hydralazine HCl (Apresoline) 10 mg SLOW IVP Q4H PRN PRN Reason: SBP > 180 and HR < 70 Meropenem 1 gm/ Device 50 mls @ 100 mls/hr IVPB 0400,1200,2000 [facility] Last Admin: 10/19/18 11:20 Dose: 50 mls Vancomycin HCl 2 gm/ Sodium (Chloride) 500 mls @ 250 mls/hr IVPB 1100,2300 [facility] Last Admin: 10/19/18 11:18 Dose: 500 mls Loperamide HCl (Imodium) 2 mg PO PRN PRN PRN Reason: Diarrhea/Loose Stools Loratadine (Claritin) 10 mg PO DAILYPRN PRN PRN Reason: Sinus Symptoms Mineral Oil/White Petrolatum (Eucerin Cream) 0 gm TOP BIDPRN PRN PRN Reason: Dry Skin Miscellaneous Medication (Pharmacy To Dose) 1 each IVPB ONE PRN PRN Reason: Pharmacy to dose Stop: 10/27/18 13:02 Morphine Sulfate (Morphine) 4 mg SLOW IVP Q2H PRN PRN Reason: Pain Last Admin: 10/19/18 11:16 Dose: 4 mg Ondansetron HCl (Zofran Odt) 4 mg PO Q6H PRN PRN Reason: Nausea/Vomiting Ondansetron HCl (Zofran) 4 mg IVP Q6H PRN PRN Reason: Nausea/Vomiting Saccharomyces Boulardii (Florastor) 250 mg PO DAILY [facility] Last Admin: 10/19/18 08:17 Dose: 250 mg Senna/Docusate Sodium (Senokot S) 2 tab PO BID PRN PRN Reason: Constipation Sodium Chloride ([place] Nasal [place] 0.65%) 0 ml EA NARE QIDPRN PRN PRN Reason: Nasal Congestion Throat Lozenges (Cepastat Lozenges) 1 debra PO Q2H PRN PRN Reason: Sore Throat Zolpidem Tartrate (Ambien) 5 mg PO HSPRN PRN PRN Reason: Insomnia
--- NOTE | 2018-10-19 16:24 | MRI ---
MRI RIGHT ANKLE WITH AND WITHOUT CONTRAST: HISTORY: Nonhealing wound: COMPARISON: Radiograph from 10/17/2018. FINDINGS: BONES: There is periosteal thickening along the lateral margin of the distal fibular, as seen on the recent radiograph. On the T1 weighted imaging sequence, there is no marrow signal replacement to gordon ggest osteomyelitis. There is mild hyperemia with linear increased signal within the distal fibula, likely from hyperemic change. There is also some cortical tunneling of the circumferential distal fi bula. There are distended superficial vessels along the pre-Achilles fat pad and adjacent to the ret rocalcaneal bursa. There is abnormal linear T2 signal in the mid navicula, likely a stress type fracture. LIGAMENTS: The AITFL and PITFL are intact. The ATFL is thickened. The CFL is also thickened. IMPRESSION: 1. There is a thickened periosteum, circumferentially, around the distal fibula, with some cortical tunneling. There is also an overlying soft tissue wound. This wound may be the sequela of chronic v enous insufficiency. There are dilated superficial veins along the pre-Achilles fat pad. There is c ortical tunneling and linear hyperemia of the distal fibula, likely sequela of this chronic venous in sufficiency or reactive from old osteomyelitis. No evidence of acute osteomyelitis. 2. Extensive edema in the superficial soft tissues adjacent to the distal fibula, likely from the no nhealing wound, without evidence of a drainable collection. The overlying perineal retinaculum and e xtensor retinaculum, mildly thickened from chronic inflammation. POS: [facility]
[2018-10-20] MEDS: Morphine 4 MG/ML VIAL SLOW IVP PRN ×4 (00:18→16:37)
[2018-10-20] MEDS: MEROPENEM 1 GM/50 ML 1 GM in Premix Bag 1 BAG IVPB SCH ×3 (04:31→20:08)
[2018-10-20] MEDS: Famotidine 20 MG TAB PO SCH ×2 (08:13→20:11)
[2018-10-20] MEDS: Enoxaparin Sodium 40 MG/0.4 ML SYRINGE SC SCH (08:13)
[2018-10-20] MEDS: Saccharomyces boulardii 250 MG CAP PO SCH (08:13)
[2018-10-20 10:25] LABS: Vancomycin, Trough 24.6 ug/mL
[2018-10-20] MEDS: HYDROcodone/Acetaminophen 5/325 mg Tablet PO PRN ×2 (11:24→20:11)
[2018-10-20] MEDS: Vancomycin HCl 1.5 GM in Sodium Chloride 0.9% 250 ML 300 ML IVPB SCH ×2 (12:32→23:25)
--- NOTE | 2018-10-20 17:27 | PRG ---
DATE OF SERVICE: 10/20/2018 SUBJECTIVE: Mr. Lazaro has some moderate pain in the right ankle region. He denies any respiratory symptoms or abdominal pain or diarrhea. OBJECTIVE: VITAL SIGNS: His vital signs are normal. O2 sat 94%. LUNGS: Clear. HEART: S1 and S2. Regular rate. ABDOMEN: Soft and nondistended. SKIN: Right wounds have been dressed. LABORATORY DATA: Microbiology with Pseudomonas aeruginosa with madrigal susceptibility. White cell count 6.2, hemoglobin 16.7. The MRI of the right ankle demonstrated thickened periosteum circumferentially around the distal fibula with some cortical tunneling. There were dilated superficial veins. ASSESSMENT: 1. Chronic wounds, medial and lateral malleolus, right ankle. 2. MRI changes, which could reflect periostitis or just reactive changes in the periosteum without actual infection. At this time, we would recommend treating with ciprofloxacin for protracted period of time assuming the worse, then continuation of wound care. Job ID: [id number]
--- NOTE | 2018-10-20 17:47 | PDOC.PN ---
- Subjective Encounter Start Date: 10/20/18 Encounter Start Time: 17:45 Mr. Lazaro was seen today in follow-up of Venous stasis ulcer. He admits to some stinging around the wound, otherwise no complaints. - Objective Resuscitation Status - Order Detail: 10/20/18 12:26 Resuscitation Status Routine Resuscitation Status: FULL: Full Resuscitation Discussed with: per prior order MAR Reviewed: Yes Vital Signs & Weight: Vital Signs (12 hours) Temp Pulse Resp BP Pulse Ox 10/20/18 08:00 94 L 10/20/18 07:34 98.3 F 72 18 123/81 94 L Weight Admit Weight 218 lb 11.2 oz Weight 218 lb 11.2 oz I&O: 10/19/18 10/20/18 10/21/18 06:59 06:59 06:59 Intake Total 3220 1250 Output Total 1300 Balance 1920 1250 Result Diagrams: 10/18/18 04:41 10/18/18 04:41 Phys Exam - Physical Examination HEENT: PERRLA Respiratory: no wheezing, no rales, no rhonchi, clear to auscultation bilateral Cardiovascular: RRR, no significant murmur, no rub Gastrointestinal: soft, non-tender, no distention, positive bowel sounds Musculoskeletal: no edema + varicose veins, and chronic venous stasis changes Neurological: non-focal Dx/Plan (1) Cellulitis of right ankle Code(s): L03.115 - CELLULITIS OF RIGHT LOWER LIMB Status: Acute (2) Dyslipidemia Code(s): E78.5 - HYPERLIPIDEMIA, UNSPECIFIED Status: Chronic (3) Hypertension Code(s): I10 - ESSENTIAL (PRIMARY) HYPERTENSION Status: Chronic (4) Hypothyroidism Code(s): E03.9 - HYPOTHYROIDISM, UNSPECIFIED Status: Chronic (5) PVD (peripheral vascular disease) Code(s): I73.9 - PERIPHERAL VASCULAR DISEASE, UNSPECIFIED Status: Chronic - Plan * Cellulitis and venous stasis ulcer of the right ankle- MRI results were noted , and culture is growing Pseudomonas which was sensitive to Quinolones * Hypothyroidism- will re-start Levothyroxine * ID input appreciated- home tomorrow on Cipro- and will consult case management to see if he can qualify for [facility] outpatient wound care..
[2018-10-20] MEDS ORDERED: Atorvastatin Calcium 20 MG TAB PO SCH (21:00)
[2018-10-20] MEDS ORDERED: Amitriptyline HCl 25 MG TAB PO SCH (21:00)
[2018-10-21] MEDS: MEROPENEM 1 GM/50 ML 1 GM in Premix Bag 1 BAG IVPB SCH ×2 (03:12→11:17)
[2018-10-21] MEDS: HYDROcodone/Acetaminophen 5/325 mg Tablet PO PRN ×3 (05:15→16:50)
[2018-10-21] MEDS ORDERED: Levothyroxine Sodium 50 MCG TAB PO SCH (06:00)
[2018-10-21 07:28] VITALS: BP 122/80; TEMP 98
[2018-10-21] MEDS: Enoxaparin Sodium 40 MG/0.4 ML SYRINGE SC SCH (07:58)
[2018-10-21] MEDS: Famotidine 20 MG TAB PO SCH (07:58)
[2018-10-21] MEDS: Saccharomyces boulardii 250 MG CAP PO SCH (07:58)
[2018-10-21] MEDS: Morphine 4 MG/ML VIAL SLOW IVP PRN ×2 (08:13→10:43)
[2018-10-21] MEDS ORDERED: Citalopram 20 MG TAB PO SCH (09:00)
[2018-10-21] MEDS: Vancomycin HCl 1.5 GM in Sodium Chloride 0.9% 250 ML 300 ML IVPB SCH (12:34)
--- NOTE | 2018-10-21 14:21 | PDOC.PN ---
- Subjective Encounter Start Date: 10/21/18 Encounter Start Time: 14:19 Mr Lazaro was seen today in follow-up of Right ankle ulcer. He is feeling better , and has no new complaints. - Objective Resuscitation Status - Order Detail: 10/20/18 12:26 Resuscitation Status Routine Resuscitation Status: FULL: Full Resuscitation Discussed with: per prior order MAR Reviewed: Yes Vital Signs & Weight: Vital Signs (12 hours) Temp Pulse Resp BP Pulse Ox 10/21/18 08:00 93 L 10/21/18 07:09 98.0 F 64 18 122/80 93 L Weight Admit Weight 218 lb 11.2 oz Weight 218 lb 11.2 oz I&O: 10/20/18 10/21/18 10/22/18 06:59 06:59 06:59 Intake Total 1250 1000 Output Total 1000 Balance 1250 0 Result Diagrams: 10/18/18 04:41 10/18/18 04:41 Phys Exam - Physical Examination Respiratory: no wheezing, no rales, no rhonchi, clear to auscultation bilateral Cardiovascular: RRR, no significant murmur, no rub Gastrointestinal: soft, non-tender, no distention, positive bowel sounds Musculoskeletal: no edema, pulses present + varicose veins, and chronic venous stasis changes Dx/Plan (1) Cellulitis of right ankle Code(s): L03.115 - CELLULITIS OF RIGHT LOWER LIMB Status: Acute (2) Dyslipidemia Code(s): E78.5 - HYPERLIPIDEMIA, UNSPECIFIED Status: Chronic (3) Hypertension Code(s): I10 - ESSENTIAL (PRIMARY) HYPERTENSION Status: Chronic (4) Hypothyroidism Code(s): E03.9 - HYPOTHYROIDISM, UNSPECIFIED Status: Chronic (5) PVD (peripheral vascular disease) Code(s): I73.9 - PERIPHERAL VASCULAR DISEASE, UNSPECIFIED Status: Chronic - Plan * Venous stasis ulcer, with cellulitis- He is stable for discharge home today * A [facility] visit for outpatient wound care has been arranged * Discharge home today..
--- NOTE | 2018-10-22 13:50 | DIS ---
DATE OF ADMISSION: 10/17/2018 DATE OF DISCHARGE: 10/21/2018 The patient does not currently have a primary care physician. DISCHARGE DISPOSITION: Home. DISCHARGE DIAGNOSES: 1. Chronic venous stasis ulcer of the right ankle with cellulitis. 2. Peripheral vascular disease. 3. Hypothyroidism. DISCHARGE MEDICATIONS: Include: 1. Ciprofloxacin 500 mg one p.o. twice a day for an extended period of time, exact stop date is undetermined. 2. Continue simvastatin 40 mg daily. 3. Santyl cream. 4. Florastor 250 mg daily. 5. Lopressor 12.5 mg twice a day. 6. Tylenol No. 4 one tablet q.4 as needed. 7. Naprosyn 500 mg twice a day. 8. Levothyroxine 50 mcg daily. 9. Atarax 50 mg t.i.d. 10. Elavil 50 mg at bedtime. 11. Celexa 40 mg daily. PROCEDURES DONE DURING ADMISSION: The patient had a lower extremity arterial ultrasound, showing some monophasic flow in both of the profunda femoral arteries and some narrowing at the left dorsalis pedis artery. The patient also had an MRI of the lower extremity on the right, which was negative for osteomyelitis. There was quiet a bit of soft tissue swelling overlying the ulcer as well as some edema, but no evidence of any deep abscess. CODE STATUS: Full code. ALLERGIES: NO KNOWN DRUG ALLERGIES. HOSPITAL COURSE: Mr. Lazaro is a pleasant 63-year-old gentleman, who was admitted to the hospital due to an ulcer on the right ankle, which was failing to heal with outpatient management. He was admitted and started on empiric IV antibiotics. Wound Care consult was obtained and the area was cleaned and dressed. It was also cultured and grew pseudomonas, which was sensitive to quinolones. He does have some evidence of peripheral vascular disease; however, he has very good palpable dorsalis pedis pulses bilaterally and good capillary refill clinically. There was no evidence of osteomyelitis. He was seen by Dr. Tejada with Infectious Disease and recommended ciprofloxacin for a protracted period of time. The stop date is yet to be determined. Also, nonpharmacological measures such as keeping the legs elevated, compression stockings, and low-sodium diet were also discussed. He is unfunded without medical insurance, and Case Management was consulted, and [facility] visit with the outpatient Wound Care was arranged. He also was recommended to follow up at the [facility] for his general medical needs and then also with Dr. Tejada in approximately 1 to 2 weeks. Job ID: [id number]
== END 2018-10-21 17:20 | disposition home or self-care (01) | DRG 593 ==
LOC: ERS 10:07 → T4-B 11:42
PROVIDERS: ADMIT Internal Medicine; ATTEND Internal Medicine
PROC: 3E0234Z Introduction of Serum, Toxoid and Vaccine into Muscle, Percutaneous Approach (ICD-10-PCS; principal; 2018-10-18)
DX: L97.319 Non-pressure chronic ulcer of right ankle with unspecified severity (principal); I83.213 Varicose veins of right lower extremity with both ulcer of ankle and inflammation; L03.115 Cellulitis of right lower limb; E87.2 Acidosis; I73.9 Peripheral vascular disease, unspecified; I10 Essential (primary) hypertension; E78.5 Hyperlipidemia, unspecified; F10.10 Alcohol abuse, uncomplicated; E03.9 Hypothyroidism, unspecified; F41.9 Anxiety disorder, unspecified; F31.9 Bipolar disorder, unspecified; F20.9 Schizophrenia, unspecified; F17.220 Nicotine dependence, chewing tobacco, uncomplicated; B96.5 Pseudomonas (aeruginosa) (mallei) (pseudomallei) as the cause of diseases classified elsewhere; Z23 Encounter for immunization
CPT/HCPCS: 36415; 80048; 80053; 80202; 81003; 83605; 85025; 85652; 86140; 87040; 87070; 87077; 87186; 87205; 90471; 90686; 93923; 94760; 96365; 96368; 96375; A9579; G0008; J1650; J2185; J2270; J3370; J7050

== ENCOUNTER 2018-10-29 08:15 | Outpatient (CLI) | payer SELFPAY ==
--- NOTE | 2018-10-29 13:41 | HP ---
HISTORY OF PRESENT ILLNESS: Mr. Tejas Astudillo is a very pleasant 63-year-old gentleman, who presents to the wound center for evaluation of venous ulcerations of the right ankle in the region of the medial and lateral malleoli. The patient has one ulceration in the region of the right lateral malleolus and another ulceration in the region of the right medial malleolus. The patient states that he first developed a venous ulceration approximately 12 to 14 years ago. He states that it was in the region of the medial malleolus and was "down to ligaments." He states that this ulceration healed over a period of 1-1/2 years. The patient states the ulceration was treated with the application of DuoDerm followed by a wrap. The patient states that he was treated for this ulceration, it helped for all. The ulceration is now present, the patient states it has been present for approximately four months. The patient was recently discharged from [facility] after admission for cellulitis of the right ankle. Upon discharge from [facility], the patient was referred to the wound center for further evaluation and treatment. MRI of the right lower extremity showed no evidence of osteomyelitis. The patient was seen in consultation by Dr. Blane Tejada of Infectious Diseases and is now taking ciprofloxacin as per Infectious Diseases. PAST MEDICAL HISTORY: 1. Peripheral vascular disease. 2. Hypertension. 3. Hypothyroidism. 4. Hepatitis C. PAST SURGICAL HISTORY: Negative. MEDICATIONS: 1. Ciprofloxacin. 2. Tylenol with codeine. 3. Florastor. 4. Naprosyn. 5. Synthroid. 6. Atarax. 7. Celexa. 8. Elavil. 9. Lopressor. 10. Zocor. 11. Seroquel. 12. [place]. 13. Kenalog 1% ointment p.r.n. ALLERGIES: NO KNOWN DIAGNOSED ALLERGIES. SOCIAL HISTORY: Social history is significant for tobacco use of two packs of cigarettes per day for 30 years. The patient states that he stopped smoking 10 to 12 years ago. The patient admits to the occasional consumption of alcohol. FAMILY HISTORY: Family history is significant for diabetes mellitus. The patient states that his father was diagnosed with diabetes mellitus. Family history is also significant for coronary artery disease. The patient states that his father was also diagnosed with coronary artery disease. PHYSICAL EXAMINATION: VITAL SIGNS: Temperature 97.6, pulse 82, respirations 16, and blood pressure 152/116. GENERAL: A 63-year-old gentleman sitting on chair in examination room, in no acute distress. HEENT: Normocephalic and atraumatic. NECK: No nuchal rigidity. CHEST: Clear to auscultation. CV: Regular rate and rhythm. ABDOMEN: Soft. EXTREMITIES: An ulceration in the region of the right lateral malleolus is present, which measures approximately 1.8 x 2.6 cm. An ulceration in the region of the right medial malleolus is present, which measures approximately 2.0 x 2.0 cm. Nonviable tissue present within the margins of each wound was debrided with an excisional full-thickness debridement. No purulent drainage is associated with either wound. No cellulitis of the right ankle is appreciated. A dorsalis pedis pulse is palpable on the right. No significant edema of the right foot or lower leg is present on exam today. Numerous varicosities are present over the right foot and lower leg. NEUROLOGIC: Grossly nonfocal. ASSESSMENT AND PLAN: 1. Varicose veins with ulcers and inflammation. The patient states he was treated with Medihoney during his hospital stay. He states with treatment with Medihoney, he noted an improvement in the appearance of his ulcerations. Medihoney gauze, ABDs, Webril, and 3M Coban two layer compression system would be applied to the ulcerations today. I will see Mr. Lazaro again in one week. The patient has been instructed to continue ciprofloxacin as prescribed by Infectious Diseases. The patient has been instructed to keep the wrap applied in clinic today, clean, dry, and intact until his followup visit in one week. 2. Peripheral vascular disease. 3. Hypertension. 4. Hypothyroidism. 5. Hepatitis C. Job ID: [id number]
== END 2018-10-29 08:16 | disposition home or self-care (01) ==
LOC: WCC 08:15
PROVIDERS: ATTEND Family Medicine
DX: I87.331 Chronic venous hypertension (idiopathic) with ulcer and inflammation of right lower extremity (principal); L97.819 Non-pressure chronic ulcer of other part of right lower leg with unspecified severity; I73.9 Peripheral vascular disease, unspecified; E03.9 Hypothyroidism, unspecified; B19.20 Unspecified viral hepatitis C without hepatic coma

== ENCOUNTER 2019-03-16 11:15 | Emergency (ER) | payer SELFPAY ==
[2019-03-16 12:41] LABS: #Lymphocytes 1.1 thou/uL (1.20-3.40); #Monocytes 0.6 thou/uL (0.11-0.59); #Neutrophils 8.5 thou/uL (1.40-6.50); %Basophils 0.5 % (0.0-1.0); %Eosinophils 0.5 % (0.0-10.0); %Lymphocytes 10.6 % (21.0-51.0); %Monocytes 6.1 % (0.0-10.0); %Neutrophils 82.4 % (42.0-75.0); Hemoglobin 18.9 g/dL (14.0-18.0); Mean Corpuscular HGB CONC 32.4 g/dL (32.0-36.0); Mean Corpuscular Hemoglobin 30.9 pg (27.0-31.0); Mean Corpuscular Volume 95.1 fL (78.0-98.0); Mean Platelet Volume 6.9 fL (7.4-10.4); Platelet Count 321 thou/uL (130-400); RBC Distribution Width 13.6 % (11.5-14.5); Red Blood Cell (RBC) Count 6.13 mill/uL (4.70-6.10); White Blood Cell (WBC) Count 10.3 thou/uL (4.8-10.8)
== END 2019-03-16 13:55 | disposition left against medical advice (07) ==
LOC: ERS 11:15
DX: Z53.21 Procedure and treatment not carried out due to patient leaving prior to being seen by health care provider (principal)
CPT/HCPCS: 36415; 85025

== ENCOUNTER 2019-04-05 08:29 | Emergency (ER) | payer SELFPAY ==
[2019-04-05 08:59] LABS: #Basophils 0.1 thou/uL (0.0-0.2); #Eosinphils 0.3 thou/uL (0.0-0.7); #Lymphocytes 1.7 thou/uL (1.20-3.40); #Monocytes 0.7 thou/uL (0.11-0.59); #Neutrophils 5.5 thou/uL (1.40-6.50); %Basophils 0.9 % (0.0-1.0); %Eosinophils 3.3 % (0.0-10.0); %Lymphocytes 20.6 % (21.0-51.0); %Monocytes 8.6 % (0.0-10.0); %Neutrophils 66.7 % (42.0-75.0); Mean Corpuscular HGB CONC 32.9 g/dL (32.0-36.0); Mean Corpuscular Hemoglobin 31.8 pg (27.0-31.0); Mean Corpuscular Volume 96.7 fL (78.0-98.0); Mean Platelet Volume 6.5 fL (7.4-10.4); Platelet Count 318 thou/uL (130-400); RBC Distribution Width 13.3 % (11.5-14.5); Red Blood Cell (RBC) Count 5.65 mill/uL (4.70-6.10); White Blood Cell (WBC) Count 8.3 thou/uL (4.8-10.8)
--- NOTE | 2019-04-05 09:12 | RAD ---
Exam: XR Ankle Rt 3 View STANDARD HISTORY: Right leg pain started this weekend while working in yard. Injury to right ankle. Patient also states he has cellulitis. COMPARISON: 10/17/2018 FINDINGS: As noted on the prior exam, there is periosteal reaction along the distal fibula laterally. No fractu re or dislocation is seen. No lytic or sclerotic osseous lesions are seen. No osseous destruction is appreciated. There is mild subcutaneous soft tissue swelling seen about the ankle; the subcutaneou s emphysema seen on prior study related to soft tissue wound at the lateral malleolus is not appreciated on today's study. IMPRESSION: Stable periosteal reaction along the lateral margin of the distal fibula which may be related to sequ tiara of chronic osteomyelitis. Subcutaneous soft tissue swelling and emphysema seen at the lateral aspect of the ankle noted on the prior study has significantly improved with only minimal soft tissue swelling seen about the ankle on today's exam. The wound/soft tissue defect lateral to the lateral malleolus is not seen. Cellulitis is not able to be excluded based on this exam.
[2019-04-05 09:13] LABS: ALT (SGPT) 12 U/L (8-55); AST (SGOT) 18 U/L (5-34); Albumin 4.3 g/dL (3.4-4.8); Alkaline Phosphatase 78 U/L (40-150); Anion Gap 14 mmol/L (10-20); BUN (Urea Nitrogen) 6 mg/dL (8.4-25.7); Bilirubin, Total 0.7 mg/dL (0.2-1.2); Calc. Creatinine Clearance 0 mL/min (70-130); Calcium 10.1 mg/dL (7.8-10.44); Carbon Dioxide 22 mmol/L (23-31); Chloride 103 mmol/L (98-107); Estimated GFR-MDRD 89; Globulin 3.6 g/dL (2.4-3.5); Glucose 99 mg/dL (80-115); Potassium 4.3 mmol/L (3.5-5.1); Protein, Total 7.9 g/dL (5.8-8.1); Sodium 135 mmol/L (136-145)
[2019-04-05] MEDS ORDERED: Lidocaine 1% PF 5 ML VIAL ONE (09:36)
[2019-04-05] MEDS ORDERED: cefTRIAXone\\ROCEPHIN 1 GM VIAL ONE (09:36)
[2019-04-05] MEDS ORDERED: Sulfameth/Trimethoprim DS 800-160mg TAB ONE (09:36)
[2019-04-05] MEDS ORDERED: Morphine 4 MG/ML VIAL ONE (09:36)
== END 2019-04-05 11:12 | disposition home or self-care (01) ==
LOC: ERS 08:29
DX: L97.319 Non-pressure chronic ulcer of right ankle with unspecified severity (principal); E03.9 Hypothyroidism, unspecified; E78.5 Hyperlipidemia, unspecified; I10 Essential (primary) hypertension; F31.9 Bipolar disorder, unspecified; F20.9 Schizophrenia, unspecified; F17.210 Nicotine dependence, cigarettes, uncomplicated; F17.220 Nicotine dependence, chewing tobacco, uncomplicated; Z79.899 Other long term (current) drug therapy
CPT/HCPCS: 36415; 80053; 85025; 87070; 87077; 87186; 87205; 96372; J0696; J2001; J2270

== ENCOUNTER 2019-05-25 17:25 | Observation (INO) | payer SELFPAY ==
--- NOTE | 2019-05-25 20:52 | RAD ---
THREE VIEWS RIGHT ANKLE: 05/25/19 HISTORY: Nonhealing wounds to right lower leg. FINDINGS: Ankle mortise is congruent. No fracture or dislocation is seen. No osseous destruction is identified. There is subcutaneous soft tissue swelling seen lateral to the ankle as well as the hindfoot as well as subcutaneous soft tissue swelling posterior to the level of the calcaneus. IMPRESSION: 1. No acute osseous abnormality. 2. Subcutaneous soft tissue swelling lateral to the ankle as well as lateral to the foot and pos teriorly. 3. If there is clinical concern for osteomyelitis, MRI of the hindfoot can be performed for furt her evaluation. POS: [facility]
[2019-05-25 21:38] LABS: #Basophils 0.1 thou/uL (0.0-0.2); #Eosinphils 0.2 thou/uL (0.0-0.7); #Lymphocytes 1.3 thou/uL (1.20-3.40); #Monocytes 0.7 thou/uL (0.11-0.59); %Basophils 0.8 % (0.0-1.0); %Eosinophils 2.6 % (0.0-10.0); %Lymphocytes 17.8 % (21.0-51.0); %Neutrophils 68.8 % (42.0-75.0); Hemoglobin 15.9 g/dL (14.0-18.0); Mean Corpuscular Hemoglobin 33.2 pg (27.0-31.0); Mean Corpuscular Volume 97.6 fL (78.0-98.0); Mean Platelet Volume 6.6 fL (7.4-10.4); Platelet Count 305 thou/uL (130-400); RBC Distribution Width 12.4 % (11.5-14.5); White Blood Cell (WBC) Count 7.3 thou/uL (4.8-10.8)
[2019-05-25 21:58] LABS: ALT (SGPT) 14 U/L (8-55); AST (SGOT) 21 U/L (5-34); Albumin 4.2 g/dL (3.4-4.8); Alkaline Phosphatase 75 U/L (40-150); Anion Gap 13 mmol/L (10-20); BUN (Urea Nitrogen) 10 mg/dL (8.4-25.7); Bilirubin, Total 0.4 mg/dL (0.2-1.2); CRP (Inflammatory) 0.76 mg/dL (= or < 0.5); Calc. Creatinine Clearance 0 mL/min (70-130); Calcium 9.5 mg/dL (7.8-10.44); Carbon Dioxide 26 mmol/L (23-31); Chloride 101 mmol/L (98-107); Estimated GFR-MDRD 89; Globulin 3.4 g/dL (2.4-3.5); Glucose 88 mg/dL (80-115); Potassium 4.4 mmol/L (3.5-5.1); Protein, Total 7.6 g/dL (5.8-8.1); Sodium 136 mmol/L (136-145)
[2019-05-25] MEDS ORDERED: Piperacillin/Tazobactam 4.5 GM VIAL ONE (22:49)
[2019-05-25] MEDS ORDERED: HYDROcodone/Acetaminophen 5/325 mg Tablet ONE (23:33)
[2019-05-25] MEDS ORDERED: Vancomycin HCl 1.5 GM in Sodium Chloride 0.9% 250 ML 300 ML IVPB SCH (23:45)
--- NOTE | 2019-05-26 00:14 | PDOC.FPRHP ---
- History of Present Illness Chief Complaint: Right foot ulcer History of Present Illness: 64 y/o male patient with a past medical history of PVD, HTN, and cellulitis presetns to the ED with pain and worsening skin infection overlying an ulcer he has had on his right foot for about 18 months. He states he was sent over from [facility], after being seen there this afternoon, for worsening skin infection. The pain is a 8/10 in intensity and is stabbing in nature over the right ankle. He complains of heat, redness, swelling and a clear to bloody drainage from the right ulcer. Patient denies any fever, night sweats or chills. He was treated for cellulitis X1 month ago out patient, with bactrim. ED Course: Blood and wound cultures collected. Patient was given first dose of Vanc and Zosyn in the ED. - Allergies/Adverse Reactions Allergies Allergy/AdvReac Type Severity Reaction Status Date / Time No Known Allergies Allergy Verified 10/17/18 12:56 - Home Medications Medication Instructions Recorded Confirmed Type Citalopram Hydrobromide [CeleXA] 40 mg PO DAILY 12/20/13 10/17/18 History Elavil 50 mg PO HS 12/20/13 10/17/18 History Levothyroxine Sodium [Synthroid] 50 mcg PO DAILY 12/20/13 05/26/19 History Naproxen [Naprosyn] 500 mg PO BID 12/20/13 10/17/18 History Triamcinolone Acetonide [Kenalog 1 applic TOP BID 12/20/13 10/17/18 History 0.1% Ointment] hydrOXYzine [Atarax] 50 mg PO TID PRN 12/20/13 10/17/18 History Metoprolol Tartrate [Lopressor] 12.5 mg PO BID #0 tab 12/22/13 05/26/19 Rx Santyl 250 Units/Gram Ointment 0 gm TOP . 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 Father: DM 2, HTN. Social: Quit smoking X9 years ago. Smoked for 30 years, 1-2 ppd. Dips tobacco 1 can every 2 days. Drinks 4-6 beers a week. Past history of IVDA, none in recent years. - Review of Systems General: denies: fever/chills, night sweats Eyes: denies: eye pain, vision changes ENT: denies: rhinorrhea Respiratory: denies: cough, shortness of breath Cardiovascular: denies: chest pain, palpitation Gastrointestinal: denies: nausea, vomiting, diarrhea, constipation, abdominal pain Skin: reports: lesions. denies: rashes Musculoskeletal: reports: pain, tenderness, stiffness, swelling Neurological: denies: numbness, syncope Psychological: reports: depression - Vital signs BP: [138/88] HR: [70] RR: [18] Tmax: [97.8] Pox: [99]% on [RA] Wt: [93.44 kg] - Physical Exam Constitutional: NAD, awake, alert and oriented, well developed HEENT: normocephalic and atraumatic, PERRLA, EOMI, conjunctiva clear, no scleral icterus, grossly normal vision, MMM Neck: supple, trachea midline Chest: no-tender to palpation, no lesions Heart: RRR, normal S1/S2, no murmurs/rubs/gallops, pulses present -Heart: bilateral dorsalis pedis pulses 2+. Trace bilateral pedal edema. Lungs: CTAB, no respiratory distress, good air movement, no rales/rhonchi, no wheezing, no retractions Abdomen: soft, non-tender, bowel sounds present, no masses/distention Musculoskeletal: normal tone -Musculoskeletal: Retracted musculature around the right achilles. Neurological: no focal deficit, CN II-XII intact, normal sensation Skin: good turgor -Skin: capillary refill is 3 seconds on bilateral lower extremity digits. Right medial ankle has a 4 cm diameter ulceration with granulation tissue base. Surrounding erythema, and induration. Lateral side of right ankle has a 5 mm ulceration with an erythematous base, not draining. Heme/Lymphatic: no unusual bruising or bleeding, no purpura Psychiatric: normal mood and affect, intact recent and remote memory FMR H&P: Results - Labs Result Diagrams: 05/26/19 03:41 05/26/19 03:41 Lab results: WBC 7.3 thou/uL (4.8-10.8) 05/25/19 21:30 Hgb 15.9 g/dL (14.0-18.0) 05/25/19 21:30 Hct 46.9 % (42.0-52.0) 05/25/19 21:30 MCV 97.6 fL (78.0-98.0) 05/25/19 21:30 Plt Count 305 thou/uL (130-400) 05/25/19 21:30 Neutrophils % 68.8 % (42.0-75.0) 05/25/19 21:30 ESR Westergren 7 mm/hr (Less than 20) 05/25/19 21:30 Sodium 136 mmol/L (136-145) 05/25/19 21:30 Potassium 4.4 mmol/L (3.5-5.1) 05/25/19 21:30 Chloride 101 mmol/L (98-107) 05/25/19 21:30 Carbon Dioxide 26 mmol/L (23-31) 05/25/19 21:30 BUN 10 mg/dL (8.4-25.7) 05/25/19 21:30 Creatinine 0.87 mg/dL (0.7-1.3) 05/25/19 21:30 Glucose 88 mg/dL (80-115) 05/25/19 21:30 Lactic Acid 0.8 mmol/L (0.5-2.2) 05/25/19 21:30 Calcium 9.5 mg/dL (7.8-10.44) 05/25/19 21:30 Total Bilirubin 0.4 mg/dL (0.2-1.2) 05/25/19 21:30 AST 21 U/L (5-34) 05/25/19 21:30 ALT 14 U/L (8-55) 05/25/19 21:30 Alkaline Phosphatase 75 U/L (40-150) 05/25/19 21:30 C-Reactive Protein 0.76 mg/dL (= or < 0.5) H 05/25/19 21:30 Serum Total Protein 7.6 g/dL (5.8-8.1) 05/25/19 21:30 Albumin 4.2 g/dL (3.4-4.8) 05/25/19 21:30 - Radiology Interpretation Other Status: report reviewed by me (X ray of right foot: soft tissue swelling of lateral aspect of right ankle.) FMR H&P: A/P - Problem List (1) Cellulitis of right ankle Current Visit: No Status: Acute Code(s): L03.115 - CELLULITIS OF RIGHT LOWER LIMB (2) Stasis dermatitis of right lower extremity with venous ulcer due to chronic peripheral venous hypertension Current Visit: Yes Status: Chronic Code(s): I87.331 - CHRONIC VENOUS HTN W ULCER AND INFLAMMATION OF R LOW EXTREM; L97.919 - NON-PRS CHRONIC ULC UNSP PRT OF R LOW LEG W UNSP SEVERITY (3) Non-healing ulcer of ankle Current Visit: No Status: Chronic Code(s): L97.309 - NON-PRESSURE CHRONIC ULCER OF UNSP ANKLE WITH UNSP SEVERITY (4) PVD (peripheral vascular disease) Current Visit: No Status: Chronic Code(s): I73.9 - PERIPHERAL VASCULAR DISEASE, UNSPECIFIED (5) Anxiety and depression Current Visit: No Status: Chronic Code(s): F41.9 - ANXIETY DISORDER, UNSPECIFIED; F32.9 - MAJOR DEPRESSIVE DISORDER, SINGLE EPISODE, UNSPECIFIED (6) Hypertension Current Visit: No Status: Chronic Code(s): I10 - ESSENTIAL (PRIMARY) HYPERTENSION (7) Hypothyroidism Current Visit: No Status: Chronic Code(s): E03.9 - HYPOTHYROIDISM, UNSPECIFIED - Plan 64 y/o male patient being admitted for observation because of right lower extremity cellulitis. 1. Cellulitis of the right lower extremity -failed out patient therapy of bactrim for this problem -blood cultures and wound cultures drawn in the ED -started on Vancomycin 1.5 g Q12h, and Zosyn 3.375 6 Q6h on 05/26 -ordered Vancomycin trough for 05/27 10:30 AM -wound care consulted -Past MRI negative for osteomyelitis 2. Chronic venous stasis ulcers to right lower extremity -evidence of good blood flow to RLE with 2+ DP pulse 3. Peripheral vascular disease -mental health counselor on tobacco cessation. 4. Hypertension -medication reconciliation will be deferred to day team at this time. The patient was unable to remember his current medications and states he takes psych medications as well as BP and thyoid medications. 5. Hypothyroidism -medication reconciliation will be deferred to day team at this time. The patient was unable to remember his current medications and states he takes psych medications as well as BP and thyoid medications. 6. Full code 7. DVT PPX: lovenox 8. Regular Diet Disposition/LOS: Patient admitted to observation on medical for cellulitis of right lower extremity. Will receive broad spectrum IV antibiotics. LOS less than 48 hours FMR H&P: Upper Level - Pertinent history 64 y/o M PMHx PVD, HTN, HLD, hypothyroidism presents with a worsened R ankle ulcer. The patient has been dealing with chronic ulcers on his R ankle over both the medial and lateral malleolus for the past 18 months he reports. He was admitted back in 10/11 for overlying cellulitis and was found to have pseudomonas that grew out of the wound culture. He was treated with a prolonged course of cipro and instructed to f/u with Dr. Tejada, however he did not keep this f/u. He is not sure exactly how long he took the cipro for. He was also treated outpatient for cellulitis about a month ago with bactrim. He reports the redness improved and the ulcer started to heal up after this, but lately it has started to get worse again with more redness, pain, and drainage. He takes norco at home for the pain. Denies fevers. - Pertinent findings Vitals: BP 133/88, HR 70, RR 18, Temp 97.8, O2 99% on RA PE: Gen - alert, oriented, NAD CV - RRR, no murmurs Lungs - CTAB, no wheezes Skin - R ankle with 1.5cm ulceration over medial malleolus with surrounding erythema and warmth. Area tender to palpation and draining small amount of serosanguinous fluid. 0.5cm ulceration over lateral malleolus with surrounding erythema. No drainage. 2+ pedal pulses, sensation intact Labs: ESR 7, CRP 0.76, Lactic Acid 0.8 R Ankle x-ray consistent with soft tissue swelling - Plan Date/Time: 05/26/19 0007 I, Gayatri Jordan MD, PGY-3, have evaluated this patient and agree with findings/ plan as outlined by video editing internship resident. Pertinent changes/additions are listed here. 1. R ankle cellulitis Pt with prior workup for osteo that was negative and currently has negative ESR and lactic acid with mildly elevated CRP. No signs of sepsis. X-ray didn't show osteo. Vanc and Zosyn started by ED. -Will continue vanc and zosyn -Wound cultures -Blood cultures -Wound care has been consulted 2. Foot ulcer Ulcerations of medial and lateral malleolus of R ankle that have been non- healing. MRI done in past has not showed osteo. -Consult wound care -Management as above 3. Hypothyroidism -Will call [facility] in AM to med rec and will restart home synthroid 4. HTN -Will med rec and restart home meds as above Dispo: Obs on medical VTE ppx: Lovenox Addendum - Attending - Attending Attestation Date/Time: 05/26/19 0659 I personally evaluated the patient and discussed the management with Dr. Magana on 05/25/2019 I agree with the History, Examination, Assessment and Plan documented above with any addition or exceptions noted below - 64 y/o male with h/o hypothyroidism, HTN, HLD and chronic venous stasis ulcer presented to the ED with pain and worsening skin infection overlying an ulcer he has had on his right ankle for about 18 months. He states he was sent over from [facility] , after being seen there this afternoon, for worsening skin infection. The pain is a 8/10 in intensity and is stabbing in nature over the right ankle. He complains of heat, redness, swelling and a clear to bloody drainage from the right ulcer. Patient denies any fever, night sweats or chills. PMH/PSH/Meds/SH reviewed and agree with resident's documentation. Afebrile VSS. Exam repeated by me and agree with resident's findings. Labs: WBC=7.3, H/H=15.9/46.9, Ycq=568 , ESR=7, CRP=0.76, Ae=865, K=4.4, Yv=596, CO2=26, BUN/Cr=10/0.87. Gluc=88, AST/ ALT=21/14; Ankle x-ray- soft tissue swelling over ankle and foot. A/P: 1) Chronic venous stasis ulcer with overlying cellulitis- Admit to medical. Continue Vanc and Zosyn. Consult wound care. 2) HTN- continue home medications. 3) Hypothyroidism- continue home medications
[2019-05-26] MEDS ORDERED: HYDROcodone/Acetaminophen 5/325 mg Tablet PO PRN (00:25)
[2019-05-26] MEDS ORDERED: Acetaminophen With Codeine [Tylenol With Codeine #4] PO PRN (01:45)
[2019-05-26 04:13] LABS: #Eosinphils 0.2 thou/uL (0.0-0.7); #Lymphocytes 1.4 thou/uL (1.20-3.40); #Monocytes 0.5 thou/uL (0.11-0.59); #Neutrophils 5.2 thou/uL (1.40-6.50); %Basophils 0.6 % (0.0-1.0); %Eosinophils 2.7 % (0.0-10.0); %Lymphocytes 19.3 % (21.0-51.0); %Neutrophils 70.3 % (42.0-75.0); Hemoglobin 14.6 g/dL (14.0-18.0); Mean Corpuscular HGB CONC 33.2 g/dL (32.0-36.0); Mean Corpuscular Hemoglobin 32.6 pg (27.0-31.0); Mean Corpuscular Volume 98.1 fL (78.0-98.0); Mean Platelet Volume 6.5 fL (7.4-10.4); Platelet Count 304 thou/uL (130-400); RBC Distribution Width 12.4 % (11.5-14.5); Red Blood Cell (RBC) Count 4.47 mill/uL (4.70-6.10); White Blood Cell (WBC) Count 7.4 thou/uL (4.8-10.8)
[2019-05-26] MEDS ORDERED: HYDROcodone/Acetaminophen 5/325 mg Tablet ONE (04:13)
[2019-05-26 04:32] LABS: Anion Gap 10 mmol/L (10-20); BUN (Urea Nitrogen) 9 mg/dL (8.4-25.7); Calc. Creatinine Clearance 0 mL/min (70-130); Calcium 9.6 mg/dL (7.8-10.44); Carbon Dioxide 28 mmol/L (23-31); Chloride 104 mmol/L (98-107); Estimated GFR-MDRD 87; Glucose 150 mg/dL (80-115); Potassium 3.2 mmol/L (3.5-5.1); Sodium 139 mmol/L (136-145)
[2019-05-26] MEDS ORDERED: Potassium Chloride 20 MEQ TAB PO SCH (04:45)
[2019-05-26] MEDS ORDERED: Piperacillin/Tazobactam 3.375 GM in Sodium Chloride 0.9% 100 ML IVPB SCH (06:00)
--- NOTE | 2019-05-26 07:42 | PDOC.FM ---
- Subjective Subjective: pt resting in bed, reports burning sensation in LE associated with wounds. additionally reports leg pain when sitting for long periods of time and occasional relief with ambulation - Objective Result Diagrams: 05/26/19 03:41 05/26/19 03:41 Phys Exam - Physical Examination Constitutional: NAD HEENT: moist MMs Neck: no JVD Gastrointestinal: no distention Musculoskeletal: no edema, pulses present Neurological: normal sensation, moves all 4 limbs Psychiatric: normal affect Deviation from normal: mild amount of erythema surrounding ulcerated skin Dx/Plan (1) Cellulitis of right ankle Code(s): L03.115 - CELLULITIS OF RIGHT LOWER LIMB Status: Acute (2) Hypertension Code(s): I10 - ESSENTIAL (PRIMARY) HYPERTENSION Status: Chronic (3) Hypothyroidism Code(s): E03.9 - HYPOTHYROIDISM, UNSPECIFIED Status: Chronic (4) Non-healing ulcer of ankle Code(s): L97.309 - NON-PRESSURE CHRONIC ULCER OF UNSP ANKLE WITH UNSP SEVERITY Status: Chronic - Plan Plan: Venous stasis ulcer -recent eval for osteo negative via mri, unlikely at this point with ESR/CRP wnl , xray neg - VSS, afebrile, no wbc elevation - consider DC Vanc and Zosyn - WCx/BCx pending -Wound care to eval and treat - gabapentin, tylenol, motrin for pain Hypothyroidism -continue home meds HTN - continue home meds ppx: Lovenox PCP: KIN abx vanc/zosyn Dispo: monitor and treat on medical floor, await culture/sensitivity results
[2019-05-26 08:48] VITALS: BMI 26.6
[2019-05-26] MEDS ORDERED: Acetaminophen 500 MG TAB PO PRN (08:51)
[2019-05-26] MEDS ORDERED: Gabapentin 300 MG CAP PO SCH (09:00)
[2019-05-26] MEDS: Metoprolol Tartrate 25 MG TAB PO SCH ×2 (10:19→20:46)
[2019-05-26] MEDS: Ibuprofen 600 MG TAB PO SCH ×3 (10:19→20:47)
[2019-05-26] MEDS: Levothyroxine Sodium 50 MCG TAB PO SCH (10:19)
[2019-05-26] MEDS: Enoxaparin Sodium 40 MG/0.4 ML SYRINGE SC SCH (10:20)
[2019-05-26] MEDS: Nicotine 14 MG PATCH TD SCH (10:23)
[2019-05-26] MEDS: Gabapentin 100 MG CAP PO SCH ×3 (10:27→20:47)
[2019-05-26] MEDS ORDERED: Vancomycin HCl 1.75 GM in Sodium Chloride 0.9% 500 ML IVPB SCH (11:00)
[2019-05-26] MEDS ORDERED: Vancomycin HCl 1.5 GM in Sodium Chloride 0.9% 250 ML 300 ML IVPB SCH (11:30)
--- NOTE | 2019-05-26 12:35 | PRG ---
DATE OF SERVICE: 05/26/2019 SUBJECTIVE: Mr. Lazaro was admitted with a possible cellulitis, venous stasis ulcer of the right lower extremity. I examined the patient this morning. There really appears to be more inflammation and wound exudate. It does not appear to be a true infection or cellulitis. We will have wound care take a look at this patient to clean up the wound and likely discharge him later this afternoon. His underlying problem seems to be chronic venous insufficiency and he has been working on this for several years. He is uninsured and this is interfered somewhat with his continuity of care. In the event, he will be discharged later this afternoon if cleared by wound care. Job ID: [id number]
[2019-05-26] MEDS: Acetaminophen/Codeine 30-300mg Tablet PO PRN ×2 (15:59→20:49)
[2019-05-26] MEDS: Doxycycline 100 MG CAP PO SCH (20:46)
[2019-05-26] MEDS ORDERED: Atorvastatin Calcium 20 MG TAB PO SCH (21:00)
[2019-05-27] MEDS: Ibuprofen 600 MG TAB PO SCH ×2 (03:36→08:36)
[2019-05-27] MEDS: Levothyroxine Sodium 50 MCG TAB PO SCH (03:36)
--- NOTE | 2019-05-27 08:27 | PDOC.FM ---
- Subjective Subjective: pt resting comfortably in bed, reports pain well controlled. denies fever/ chills - Objective Vital Signs & Weight: Vital Signs (12 hours) Temp Pulse Resp BP Pulse Ox 05/27/19 03:20 98.1 F 59 L 18 139/63 96 05/26/19 23:20 97.8 F 64 16 127/78 98 Weight Admit Weight 91.58 kg Weight 90.718 kg I&O: 05/26/19 05/27/19 05/28/19 06:59 06:59 06:59 Intake Total 1400 Balance 1400 Result Diagrams: 05/26/19 03:41 05/26/19 03:41 Phys Exam - Physical Examination Constitutional: NAD HEENT: moist MMs Neck: no nodes Gastrointestinal: no distention Musculoskeletal: pulses present Neurological: moves all 4 limbs Psychiatric: normal affect Skin: no rash Dx/Plan (1) Cellulitis of right ankle Code(s): L03.115 - CELLULITIS OF RIGHT LOWER LIMB Status: Acute (2) Hypertension Code(s): I10 - ESSENTIAL (PRIMARY) HYPERTENSION Status: Chronic (3) Hypothyroidism Code(s): E03.9 - HYPOTHYROIDISM, UNSPECIFIED Status: Chronic (4) Non-healing ulcer of ankle Code(s): L97.309 - NON-PRESSURE CHRONIC ULCER OF UNSP ANKLE WITH UNSP SEVERITY Status: Chronic - Plan Plan: Venous stasis ulcer -recent eval for osteo negative via mri, unlikely at this point with ESR/CRP wnl , xray neg - VSS, afebrile, no wbc elevation - doxycycline - WCx/BCx reveal most likely contaminates -Wound care to eval and treat - gabapentin, tylenol, motrin for pain Hypothyroidism -continue home meds HTN - continue home meds ppx: Lovenox PCP: HFA abx vanc/zosyn Dispo: DC home today
[2019-05-27 08:35] VITALS: TEMP 97.5
[2019-05-27] MEDS: Doxycycline 100 MG CAP PO SCH (08:36)
[2019-05-27] MEDS: Acetaminophen/Codeine 30-300mg Tablet PO PRN (08:36)
[2019-05-27] MEDS: Metoprolol Tartrate 25 MG TAB PO SCH (08:36)
[2019-05-27] MEDS: Gabapentin 100 MG CAP PO SCH (08:36)
[2019-05-27] MEDS: Enoxaparin Sodium 40 MG/0.4 ML SYRINGE SC SCH (08:37)
[2019-05-27] MEDS: Nicotine 14 MG PATCH TD SCH (08:37)
[2019-05-27 09:04] LABS: ALT (SGPT) 15 U/L (8-55); AST (SGOT) 19 U/L (5-34); Albumin 3.7 g/dL (3.4-4.8); Alkaline Phosphatase 61 U/L (40-150); Anion Gap 14 mmol/L (10-20); BUN (Urea Nitrogen) 9 mg/dL (8.4-25.7); Bilirubin, Total 0.4 mg/dL (0.2-1.2); Calc. Creatinine Clearance 121 mL/min (70-130); Calcium 9.2 mg/dL (7.8-10.44); Carbon Dioxide 19 mmol/L (23-31); Chloride 110 mmol/L (98-107); Estimated GFR-MDRD Greater than 90; Globulin 3.1 g/dL (2.4-3.5); Glucose 93 mg/dL (80-115); Potassium 4.6 mmol/L (3.5-5.1); Protein, Total 6.8 g/dL (5.8-8.1); Sodium 138 mmol/L (136-145)
--- NOTE | 2019-05-27 10:43 | PRG ---
DATE OF SERVICE: 05/27/2019 The patient was seen yesterday by Wound Care. We appreciate their input. This morning, he looks and feels much better and will be discharged for a brief course of doxycycline. He is urged to follow up with outpatient wound care as this will likely be the only cure for his venous stasis ulcer. Job ID: [id number]
[2019-05-27 10:52] VITALS: BP 130/82
--- NOTE | 2019-05-28 12:58 | DIS ---
DATE OF ADMISSION: 05/25/2019 DATE OF DISCHARGE: 05/27/2019 RESIDENT: Avi Blevins DO. CONSULTS: None. IMAGING STUDIES: Ankle x-ray negative for acute bony process. Some soft tissue swelling present. DISCHARGE MEDICATIONS: 1. Levothyroxine sodium 50 mcg p.o. daily. 2. Elavil 50 mg p.o. at bedtime. 3. Lopressor 12.5 mg p.o. b.i.d. 4. Simvastatin 40 mg p.o. at bedtime. 5. Gabapentin 100 mg p.o. t.i.d. 6. Ibuprofen 600 mg p.o. q.6 hours. 7. Seroquel 50 mg p.o. at bedtime. 8. Doxycycline 100 mg p.o. b.i.d. for 8 additional days. DISCHARGE DIAGNOSES: Primary diagnosis: Venous stasis ulcer. Secondary diagnoses: 1. Hypothyroid. 2. Hypertension. HISTORY OF PRESENT ILLNESS/HOSPITAL COURSE: Mr. Lazaro is a 64-year-old male, who presents with a past medical history of peripheral vascular disease, hypertension, cellulitis to the emergency department with worsening of skin ulceration on his right foot that he has had for over a year. He reports significant pain and tenderness in this area. At the time of admission, he denied any fever, night sweats, or chills. Treated outpatient for cellulitis a month ago with Bactrim. In the emergency department, he was given a dose of vancomycin and Zosyn. On rounds the following day, it was determined that the ulcer was most likely a worsening of venous stasis and not infectious. At that time, antibiotics were discontinued. Cultures came back positive for mixed salina. Concern for Staph, doxycycline was started. I recommended to be continued for a total of 10 days. The patient is needing significant wound care. Case Management consulted for [facility] wound care set up with followup appointments. The patient deemed stable for discharge home. DISCHARGE INSTRUCTIONS: Location: Home. Activity: As tolerated. Diet: Heart healthy, low-sodium. Follow up in 5 to 7 days with PCP. [facility] on Friday. Job ID: [id number]
== END 2019-05-27 11:16 | disposition home or self-care (01) ==
LOC: ERS 17:25 → ERHOLD 22:37 → 2SW 05-26 08:13
PROVIDERS: ADMIT Family Medicine; ATTEND Family Medicine
DX: I83.013 Varicose veins of right lower extremity with ulcer of ankle (principal); L97.319 Non-pressure chronic ulcer of right ankle with unspecified severity; L03.115 Cellulitis of right lower limb; I10 Essential (primary) hypertension; E03.9 Hypothyroidism, unspecified; I73.9 Peripheral vascular disease, unspecified; F41.9 Anxiety disorder, unspecified; F32.9 Major depressive disorder, single episode, unspecified; E78.5 Hyperlipidemia, unspecified; F17.220 Nicotine dependence, chewing tobacco, uncomplicated; Z79.899 Other long term (current) drug therapy
CPT/HCPCS: 36415; 80048; 80053; 83605; 83735; 85025; 85652; 86140; 87040; 87070; 87077; 87186; 87205; 96365; 96366; 96367; 96372; G0378; J1650; J2543; J3370; J3490; J7050

== ENCOUNTER 2019-06-02 15:39 | Outpatient (CLI) | payer SELFPAY ==
[~2019-06-02 15:39] MED LIST: Sodium Chloride 0.9% 15 ML NEB ONE
--- NOTE | 2019-06-02 16:55 | PRG ---
DATE OF SERVICE: 06/02/2019 HISTORY: Mr. Baudilio Lazaro is a very pleasant 64-year-old gentleman, who presents to the Wound Center for evaluation of venous ulcerations of the right lower extremity in the region of the malleoli. The patient has 1 ulceration in the region of the right lateral malleolus and another ulceration in the region of the right medial malleolus. The patient was last seen in the Wound Center on 10/29/2018 also for venous ulcerations of the right ankle in the region of the medial and lateral malleoli. The patient was recently admitted to [facility] for cellulitis of the right lower extremity. The patient states that during his hospital stay, the ulcerations were treated with dressing changes of Multidex powder. The patient states that since his discharge from [facility], he has been dressing the ulcerations with Multidex powder followed by an ABD, Kerlix, and an Khanh bandage. The patient also complains of significant pain associated with his ulcerations. PHYSICAL EXAMINATION: VITAL SIGNS: Temperature 97.4, pulse 89, respirations 18, blood pressure 146/78. EXTREMITIES: An ulceration in the region of the right medial malleolus is present which measures approximately 3.2 x 1.4 cm. An ulceration in the region of the right lateral malleolus is present which measures approximately 1.2 x 0.7 cm. Granulation tissue is present within the margins of each wound. No purulent drainage is associated with either wound. No cellulitis of the right lower extremity is appreciated. No maceration of the skin of the periwound of either wound is noted. No significant edema of the right foot or lower leg is appreciated on today's exam. ASSESSMENT AND PLAN: 1. Varicose veins with ulcers and inflammation. Dressing changes of Multidex powder followed by an ABD, Kerlix, and an Khanh bandage will be continued 3 times per week after cleansing and irrigation. The patient will be performing his own dressing changes. I will see Mr. Lazaro again in 2 weeks. The patient has been given a prescription for Tylenol No.3, #30, one to two p.o. q.4 to 6 hours p.r.n. pain. 2. Peripheral vascular disease. 3. Hypertension. 4. Hypothyroidism. 5. Hepatitis C. Job ID: [id number]
== END 2019-06-02 15:40 | disposition home or self-care (01) ==
LOC: WCC 15:39
PROVIDERS: ATTEND Family Medicine
DX: I83.218 Varicose veins of right lower extremity with both ulcer of other part of lower extremity and inflammation (principal); L97.919 Non-pressure chronic ulcer of unspecified part of right lower leg with unspecified severity; I73.9 Peripheral vascular disease, unspecified; I10 Essential (primary) hypertension; B19.20 Unspecified viral hepatitis C without hepatic coma; E03.9 Hypothyroidism, unspecified; B18.2 Chronic viral hepatitis C
CPT/HCPCS: 97602; 99213; A4218; G0463

== ENCOUNTER 2019-06-24 16:09 | Outpatient (CLI) | payer SELFPAY ==
--- NOTE | 2019-06-24 09:49 | PRG ---
DATE OF SERVICE: 06/24/2019 HISTORY: Mr. Baudilio Lazaro is a very pleasant 64-year-old gentleman, who presents to the Wound Center for evaluation of venous ulcerations of the right lower extremity in the region of the malleoli. The patient has 1 ulceration in the region of the right lateral malleolus and another ulceration in the region of the right medial malleolus. The patient was previously seen in the Wound Center on 10/29/2018, also for venous ulcerations of the right ankle in the region of the medial and lateral malleoli. The patient was recently admitted to [facility] for cellulitis of the right lower extremity. The patient stated that during his hospital stay, the ulcerations were treated with dressing changes of Multidex powder. The patient stated that, after his discharge from [facility], he dressed the ulcerations with Multidex powder followed by an ABD, Kerlix, and an Khanh bandage. Again, the patient complains of significant pain associated with his ulcerations. PHYSICAL EXAMINATION: VITAL SIGNS: Temperature 97.4, pulse 97, respirations 22, blood pressure 143/85. EXTREMITIES: An ulceration in the region of the right medial malleolus is present, which measures approximately 3.0 x 1.5 cm. An ulceration in the region of the right lateral malleolus is present, which measures approximately 1.7 x 0.9 cm. Granulation tissue is present within the margins of each wound. No purulent drainage is associated with either wound. No cellulitis of the right lower extremity is appreciated. No maceration of the skin of the periwound of either wound is noted. No significant edema of the right foot or lower leg is appreciated on today's exam. Numerous varicosities are present over the right lower extremity. ASSESSMENT AND PLAN: 1. Varicose veins with ulcers and inflammation, dressing changes of Multidex powder followed by an ABD, Kerlix, and an Khanh bandage will be continued 3 times per week after cleansing and irrigation. The patient will continue to perform his own dressing changes. I will see Mr. Lazaro again in 2 weeks. The patient has been given a second prescription for Tylenol No. 3, #30, one to two p.o. q.4 to 6 hours p.r.n. pain. 2. Peripheral vascular disease. 3. Hypertension. 4. Hypothyroidism. 5. Hepatitis C. Job ID: [id number]
[2019-06-26] MEDS ORDERED: Sodium Chloride 0.9% 15 ML NEB ONE (14:30)
[2019-06-26] MEDS ORDERED: Lidocaine 2% PF 100 mg/5 ml Syringe ONE (14:30)
== END 2019-06-24 16:10 | disposition home or self-care (01) ==
LOC: WCC 16:09
PROVIDERS: ATTEND Family Medicine
DX: I83.213 Varicose veins of right lower extremity with both ulcer of ankle and inflammation (principal); L97.319 Non-pressure chronic ulcer of right ankle with unspecified severity; I73.9 Peripheral vascular disease, unspecified; I10 Essential (primary) hypertension; E03.9 Hypothyroidism, unspecified; B19.20 Unspecified viral hepatitis C without hepatic coma
CPT/HCPCS: 97602

== ENCOUNTER 2019-07-08 07:52 | Outpatient (CLI) | payer SELFPAY ==
--- NOTE | 2019-07-08 09:14 | PRG ---
DATE OF SERVICE: 07/08/2019 HISTORY: Mr. Baudilio Lazaro is a very pleasant 64-year-old gentleman who presents to the [facility] for evaluation of venous ulcerations of the right lower extremity in the region of the malleoli. The patient has one ulceration in the region of the right lateral malleolus and another ulceration in the region of the right medial malleolus. The patient was previously seen in the Wound Center in 2018 also for venous ulcerations of the right ankle in the region of the medial and lateral malleoli. The patient was recently admitted to [facility] for cellulitis of the right lower extremity. The patient stated that during his hospital stay, the ulcerations were treated with dressing changes of Multidex powder. He stated that after his discharge from [facility], he dressed the ulcerations with Multidex powder followed by an ABD, Kerlix, and an Khanh bandage. Again, today, the patient complains of significant pain associated with his ulcerations. The patient states that he has been unable to consistently perform dressing changes with Multidex powder due to pain associated with its application. PHYSICAL EXAMINATION: VITAL SIGNS: Temperature 97.4, pulse 68, respirations 20, and blood pressure 124/78. EXTREMITIES: An ulceration in the region of the right medial malleolus is present, which measures approximately 3.1 x 1.4 cm. An ulceration in the region of the right lateral malleolus is present, which measures approximately 2.0 x 1.2 cm. Granulation tissue is present within the margins of each wound. No purulent drainage is associated with either wound. No maceration of the skin of the periwound of either wound is noted. A dorsalis pedis pulse is palpable on the right. Numerous varicosities are present over the right lower extremity. ASSESSMENT AND PLAN: 1. Varicose veins with ulcers and inflammation. Dressing changes of Medihoney followed by an ABD, Kerlix, and an Khanh bandage will be initiated today. These dressing changes are to be performed on a daily basis after cleansing and irrigation. The patient will continue to perform his own dressing changes. I will see Mr. Lazaro again in 2 weeks. The patient has been given a 3rd prescription for Tylenol No. 3, #30, 1 to 2 p.o. q.4 to 6 hours p.r.n. pain. 2. Peripheral vascular disease. 3. Hypertension. 4. Hypothyroidism. 5. Hepatitis C. Job ID: [id number]
[2019-07-08] MEDS ORDERED: Lidocaine 2% PF 100 mg/5 ml Syringe ONE (11:11)
[2019-07-08] MEDS ORDERED: Sodium Chloride 0.9% 15 ML NEB ONE (11:11)
== END 2019-07-08 07:53 | disposition home or self-care (01) ==
LOC: WCC 07:52
PROVIDERS: ATTEND Family Medicine
DX: I83.218 Varicose veins of right lower extremity with both ulcer of other part of lower extremity and inflammation (principal); L97.819 Non-pressure chronic ulcer of other part of right lower leg with unspecified severity; I73.9 Peripheral vascular disease, unspecified; I10 Essential (primary) hypertension; E03.9 Hypothyroidism, unspecified; B19.20 Unspecified viral hepatitis C without hepatic coma
CPT/HCPCS: 97602; A4218; J2001

== ENCOUNTER 2019-07-28 08:20 | Outpatient (CLI) | payer SELFPAY ==
[2019-07-28] MEDS ORDERED: Sodium Chloride 0.9% 15 ML NEB ONE (09:00)
[2019-07-28] MEDS ORDERED: Lidocaine 2% PF 100 mg/5 ml Syringe ONE (09:00)
--- NOTE | 2019-07-28 10:04 | PRG ---
DATE OF SERVICE: 07/28/2019 HISTORY: Mr. Baudilio Lazaro is a very pleasant 64-year-old gentleman, who presents to the wound center for evaluation of venous ulcerations of the right lower extremity in the region of the malleoli. The patient has 1 ulceration in the region of the right lateral malleolus and another ulceration in the region of the right medial malleolus. The patient was previously seen in the wound center in 2018 also for venous ulcerations of the right ankle in the region of the medial and lateral malleoli. The patient was recently admitted to [facility] for cellulitis of the right lower extremity. The patient stated that during his hospital stay the ulcerations were treated with dressing changes of Multidex powder. He stated that after his discharge from [facility], he dressed the ulcerations with Multidex powder followed by an ABD, Kerlix, and an Khanh bandage. The patient stated that he was unable to consistently perform dressing changes with Multidex powder due to pain associated with its application. Since the patient's last visit, Mr. Lazaro has been performing dressing changes of Medihoney for the venous ulcerations of his right lower extremity. Again, today, the patient complains of significant pain associated with his ulcerations. PHYSICAL EXAMINATION: VITAL SIGNS: Temperature 97.6, pulse 92, respirations 21, and blood pressure 132/82. EXTREMITIES: An ulceration in the region of the right medial malleolus is present, which measures approximately 2.9 x 1.4 cm. The dimensions of the wound at the time of the patient's last visit were approximately 3.1 x 1.4 cm. An ulceration in the region of the right lateral malleolus is present, which measures approximately 1.6 x 0.8 cm. The dimensions of the wound at the time of the patient's last visit were approximately 2.0 x 1.2 cm. Granulation tissue is present within the margins of each wound. No purulent drainage is associated with either wound. No maceration of the skin of the periwound of either wound is noted. Numerous varicosities are present over the right lower extremity. ASSESSMENT AND PLAN: 1. Varicose veins with ulcers and inflammation. Dressing changes of Medihoney followed by an ABD, a Kerlix, and an Khanh bandage will be continued on a daily basis after cleansing and irrigation. The patient will continue to perform his own dressing changes. I will see Mr. Lazaro again in 3 weeks. 2. Peripheral vascular disease. 3. Hypertension. 4. Hypothyroidism. 5. Hepatitis C. Job ID: [id number]
== END 2019-07-28 08:21 | disposition home or self-care (01) ==
LOC: WCC 08:20
PROVIDERS: ATTEND Family Medicine
DX: I83.213 Varicose veins of right lower extremity with both ulcer of ankle and inflammation (principal); L97.319 Non-pressure chronic ulcer of right ankle with unspecified severity; I73.9 Peripheral vascular disease, unspecified; I10 Essential (primary) hypertension; E03.9 Hypothyroidism, unspecified; B19.20 Unspecified viral hepatitis C without hepatic coma
CPT/HCPCS: 97602; A4218; J2001

== ENCOUNTER 2019-08-23 14:16 | Outpatient (CLI) | payer SELFPAY ==
--- NOTE | 2019-08-23 09:49 | PRG ---
DATE OF SERVICE: 08/23/2019 HISTORY: Mr. Baudilio Lazaro is a very pleasant 64-year-old gentleman, who presents to the Wound Center for evaluation of venous ulcerations of the right lower extremity in the region of the malleoli. The patient has one ulceration in the region of the right lateral malleolus and another ulceration in the region of the right medial malleolus. The patient was previously seen in the Wound Center in 2018 also for venous ulcerations of the right ankle in the region of the medial and lateral malleoli. The patient was admitted to [facility] for cellulitis of the right lower extremity in May of this year. The patient stated that during his hospital stay, the ulcerations were treated with dressing changes of Multidex powder. He stated that after his discharge from [facility], he dressed the ulcerations with Multidex powder followed by an ABD, Kerlix, and an Khanh bandage. The patient stated that he was unable to consistently perform dressing changes with Multidex powder due to pain associated with its application. The patient subsequently performed dressing changes of Medihoney for the venous ulcerations of his right lower extremity. Today, the patient states that he has been unable to perform dressing changes of Medihoney again because of pain associated with its application. PHYSICAL EXAMINATION: VITAL SIGNS: Temperature 97.6, pulse 74, respirations 20, and blood pressure 165/98. EXTREMITIES: An ulceration in the region of the right medial malleolus is present, which measures approximately 1.1 x 3.0 cm. The dimensions of the wound at the time of the patient's last visit were approximately 2.9 x 1.4 cm. An ulceration in the region of the right lateral malleolus is present, which measures approximately 0.5 x 0.9 cm. The dimensions of the wound at the time of the patient's last visit were approximately 1.6 x 0.8 cm. Granulation tissue is present within the margins of each wound. No purulent drainage is associated with either wound. No maceration of the skin of the periwound of either wound is noted. Numerous varicosities are present over the right lower extremity. Erythema of the skin surrounding each wound is present on exam today. ASSESSMENT AND PLAN: 1. Varicose veins with ulcers and inflammation. Dressing changes of Adaptic followed by an ABD, Kerlix, and an Khanh bandage are to be performed on a daily basis after cleansing and irrigation. The patient will continue to perform his own dressing changes. I will see Mr. Lazaro again in 3 to 4 weeks. In view of the erythema of the skin surrounding each wound, the patient has been given a prescription for doxycycline 100 mg #20 one p.o. b.i.d. x10 days. The patient has been told, however, that the erythema of the skin surrounding each wound may be secondary to stasis changes as opposed to an infectious process. 2. Peripheral vascular disease. 3. Hypertension. 4. Hypothyroidism. 5. Hepatitis C. Job ID: [id number]
[2019-08-23] MEDS ORDERED: Sodium Chloride 0.9% 15 ML NEB ONE (18:19)
== END 2019-08-23 14:17 | disposition home or self-care (01) ==
LOC: WCC 14:16
PROVIDERS: ATTEND Family Medicine
DX: I83.218 Varicose veins of right lower extremity with both ulcer of other part of lower extremity and inflammation (principal); L97.919 Non-pressure chronic ulcer of unspecified part of right lower leg with unspecified severity; I73.9 Peripheral vascular disease, unspecified; I10 Essential (primary) hypertension; E03.9 Hypothyroidism, unspecified; B19.20 Unspecified viral hepatitis C without hepatic coma
CPT/HCPCS: 97602; A4218

== ENCOUNTER 2020-08-31 07:37 | Outpatient (CLI) | payer OTHER | END 2020-08-31 07:38 | disposition home or self-care (01) | LOC: LABBT 07:37 | PROVIDERS: ATTEND Orthopaedic Surgery | DX: Z01.810 Encounter for preprocedural cardiovascular examination (principal); M17.12 Unilateral primary osteoarthritis, left knee | CPT/HCPCS: 93005; 93010 ==

== ENCOUNTER 2020-09-01 07:46 | Outpatient (CLI) | payer OTHER ==
[2020-09-01 18:00] LABS: Hemoglobin 15.8 g/dL (14.0-18.0); Mean Corpuscular Hemoglobin 33.4 pg (27.0-31.0); Mean Corpuscular Volume 98.2 fL (78.0-98.0); Mean Platelet Volume 6.6 fL (7.4-10.4); Platelet Count 312 thou/uL (130-400); RBC Distribution Width 12.1 % (11.5-14.5); Red Blood Cell (RBC) Count 4.74 mill/uL (4.70-6.10); White Blood Cell (WBC) Count 7.2 thou/uL (4.8-10.8)
[2020-09-01 18:18] LABS: Anion Gap 17 mmol/L (10-20); BUN (Urea Nitrogen) 6 mg/dL (8.4-25.7); Calc. Creatinine Clearance 0 mL/min (70-130); Calcium 9.1 mg/dL (7.8-10.44); Carbon Dioxide 22 mmol/L (23-31); Chloride 100 mmol/L (98-107); Estimated GFR-MDRD Greater than 90; Glucose 124 mg/dL (80-115); Potassium 4.1 mmol/L (3.5-5.1); Sodium 135 mmol/L (136-145)
[2020-09-01 18:20] LABS: INR-International Normal Ratio 0.9
[2020-09-02 15:24] LABS: SARS-CoV-2 MS2 Positive; SARS-CoV-2 N Gene Negative; SARS-CoV-2 S Gene Negative; SARS-CoV-2 by NAA Not Detected (NotDetected); SARS-CoV-2 orf1ab Negative
--- NOTE | 2020-09-04 17:29 | EKG ---
Test Reason : Blood Pressure : / mmHG Vent. Rate : 102 BPM Atrial Rate : 102 BPM P-R Int : 130 ms QRS Dur : 096 ms QT Int : 348 ms P-R-T Axes : 078 074 083 degrees QTc Int : 453 ms Sinus tachycardia Possible Left atrial enlargement Left ventricular hypertrophy Nonspecific ST abnormality Abnormal ECG No previous ECGs available Confirmed by DR. Wesley MCCLELLAND ([id number]) on 09/04/2020 5:28:52 PM Referred By: LIDYA Confirmed By:DR. Wesley MCCLELLAND
== END 2020-09-01 07:47 | disposition home or self-care (01) ==
LOC: LABBT 07:46
PROVIDERS: ATTEND Orthopaedic Surgery
DX: Z01.818 Encounter for other preprocedural examination (principal); M17.12 Unilateral primary osteoarthritis, left knee; Z20.828 Contact with and (suspected) exposure to other viral communicable diseases
CPT/HCPCS: 87081; 87635; 93005; 93010; U0003

== ENCOUNTER 2024-05-03 11:25 | Emergency (ER) | payer MEDICARE, MEDICAID ==
[2024-05-03 12:05] LABS: #Basophils 0.04 10x3/uL (0.0-0.2); %Basophils 0.6 % (0.0-1.0); %Eosinophils 3.1 % (0.0-10.0); %Monocytes 10.9 % (0.0-10.0); %Neutrophils 67.8 % (42.0-75.0); Hematocrit 54.6 % (42.0-52.0); Hemoglobin 18.1 g/dL (14.0-18.0); Mean Corpuscular HGB CONC 33.2 g/dL (32.0-36.0); Mean Corpuscular Hemoglobin 31.8 pg (27.0-31.0); Mean Platelet Volume 9.3 fL (7.4-10.4); Platelet Count 299 10x3/uL (130-400); RBC Distribution Width 13.6 % (11.5-14.5); Red Blood Cell (RBC) Count 5.69 mill/uL (4.70-6.10)
[2024-05-03 12:22] LABS: ALT (SGPT) 14 U/L (8-55); AST (SGOT) 29 U/L (5-34); Alkaline Phosphatase 78 U/L (40-110); Anion Gap 17 mmol/L (10-20); BUN (Urea Nitrogen) 16 mg/dL (8.4-25.7); Bilirubin, Total 0.3 mg/dL (0.2-1.2); Calc. Creatinine Clearance 0 mL/min (70-130); Calcium 9.7 mg/dL (7.8-10.44); Carbon Dioxide 18 mmol/L (23-31); Chloride 105 mmol/L (98-107); Estimated GFR 88; Globulin 3.9 g/dL (2.4-3.5); Glucose 90 mg/dL (80-115); Lipase 38 U/L (8-78); Potassium 5.2 mmol/L (3.5-5.1); Protein, Total 7.9 g/dL (5.8-8.1); Sodium 135 mmol/L (136-145); Troponin I 0.022 ng/mL (< 0.028)
== END 2024-05-03 13:50 | disposition home or self-care (01) ==
LOC: ERS 11:25
DX: L73.9 Follicular disorder, unspecified (principal); R60.0 Localized edema; E03.9 Hypothyroidism, unspecified; E78.5 Hyperlipidemia, unspecified; I11.0 Hypertensive heart disease with heart failure; I50.9 Heart failure, unspecified; F17.220 Nicotine dependence, chewing tobacco, uncomplicated; I73.9 Peripheral vascular disease, unspecified; Z55.0 Illiteracy and low-level literacy
CPT/HCPCS: 36415; 71045; 80053; 83690; 83880; 84484; 85025; 93005

== ENCOUNTER 2025-08-12 11:20 | Inpatient (IN) | payer MEDICARE, MEDICAID ==
[2025-08-12 13:00] LABS: #Basophils 0.04 10x3/uL (0.0-0.2); #Eosinophils 0.14 10x3/uL (0.0-0.7); #Monocytes 0.61 10x3/uL (0.11-0.59); #Neutrophils 4.94 10x3/uL (1.40-6.50); %Basophils 0.6 % (0.0-1.0); %Eosinophils 2.1 % (0.0-10.0); %Lymphocytes 12.9 % (21.0-51.0); %Monocytes 9.2 % (0.0-10.0); %Neutrophils 74.9 % (42.0-75.0); Hematocrit 45.6 % (42.0-52.0); Hemoglobin 14.6 g/dL (14.0-18.0); Mean Corpuscular Hemoglobin 29.8 pg (27.0-31.0); Mean Corpuscular Volume 93.1 fL (78.0-98.0); Platelet Count 215 10x3/uL (130-400); Red Blood Cell (RBC) Count 4.90 mill/uL (4.70-6.10); White Blood Cell (WBC) Count 6.60 10x3/uL (4.8-10.8)
[2025-08-12 13:14] LABS: ALT (SGPT) 56 U/L (Less than 45); AST (SGOT) 94 U/L (11-34); Albumin 3.4 g/dL (3.1-4.5); Alkaline Phosphatase 277 U/L (40-110); Anion Gap 16 mmol/L (10-20); BUN (Urea Nitrogen) 15 mg/dL (8.4-25.7); Bilirubin, Total 1.0 mg/dL (0.3-1.2); Calc. Creatinine Clearance 0 mL/min (70-130); Calcium 9.0 mg/dL (7.8-10.44); Carbon Dioxide 18 mmol/L (23-31); Chloride 109 mmol/L (98-107); Globulin 4.3 g/dL (2.4-3.5); Glucose 89 mg/dL (80-115); Potassium 4.2 mmol/L (3.5-5.1); Sodium 139 mmol/L (136-145)
[2025-08-12] MEDS ORDERED: Furosemide 40 MG (4 mL) VIAL ONE (14:38)
[2025-08-12] MEDS ORDERED: Acetaminophen 325 MG TAB PO PRN (15:53)
[2025-08-12] MEDS ORDERED: Melatonin 3 MG TAB PO PRN (15:53)
[2025-08-12] MEDS ORDERED: Ondansetron PF 4 MG/2 ML Vial IVP PRN (15:53)
[2025-08-12 18:40] VITALS: BMI 23.1
[2025-08-13 05:32] LABS: #Basophils 0.03 10x3/uL (0.0-0.2); #Eosinophils 0.19 10x3/uL (0.0-0.7); #Monocytes 0.63 10x3/uL (0.11-0.59); #Neutrophils 4.25 10x3/uL (1.40-6.50); %Basophils 0.5 % (0.0-1.0); %Eosinophils 3.1 % (0.0-10.0); %Lymphocytes 16.9 % (21.0-51.0); %Monocytes 10.2 % (0.0-10.0); %Neutrophils 69.0 % (42.0-75.0); Hematocrit 38.0 % (42.0-52.0); Hemoglobin 12.5 g/dL (14.0-18.0); Mean Corpuscular Hemoglobin 29.3 pg (27.0-31.0); Mean Corpuscular Volume 89.0 fL (78.0-98.0); Platelet Count 254 10x3/uL (130-400); Red Blood Cell (RBC) Count 4.27 mill/uL (4.70-6.10); White Blood Cell (WBC) Count 6.16 10x3/uL (4.8-10.8)
[2025-08-13 05:47] LABS: Anion Gap 12 mmol/L (10-20); BUN (Urea Nitrogen) 17 mg/dL (8.4-25.7); Calc. Creatinine Clearance 83 mL/min (70-130); Calcium 8.6 mg/dL (7.8-10.44); Carbon Dioxide 27 mmol/L (23-31); Chloride 104 mmol/L (98-107); Glucose 110 mg/dL (80-115); Potassium 3.3 mmol/L (3.5-5.1); Sodium 140 mmol/L (136-145)
[2025-08-13] MEDS: Furosemide 40 MG (4 mL) VIAL SLOW IVP SCH (07:03)
[2025-08-13] MEDS: Gabapentin 100 MG CAP PO SCH (09:44)
[2025-08-13] MEDS: Lisinopril 2.5 MG TAB PO SCH (09:44)
[2025-08-13] MEDS: OLANZapine 5 MG TAB PO SCH (09:45)
[2025-08-13] MEDS: Apixaban 5 MG TAB PO SCH (09:45)
[2025-08-14 05:03] LABS: #Basophils 0.05 10x3/uL (0.0-0.2); #Eosinophils 0.19 10x3/uL (0.0-0.7); #Monocytes 0.57 10x3/uL (0.11-0.59); #Neutrophils 3.08 10x3/uL (1.40-6.50); %Basophils 1.0 % (0.0-1.0); %Eosinophils 3.9 % (0.0-10.0); %Lymphocytes 20.5 % (21.0-51.0); %Monocytes 11.6 % (0.0-10.0); %Neutrophils 62.4 % (42.0-75.0); Hematocrit 41.3 % (42.0-52.0); Hemoglobin 12.7 g/dL (14.0-18.0); Mean Corpuscular Hemoglobin 28.5 pg (27.0-31.0); Mean Corpuscular Volume 92.6 fL (78.0-98.0); Platelet Count 237 10x3/uL (130-400); Red Blood Cell (RBC) Count 4.46 mill/uL (4.70-6.10); White Blood Cell (WBC) Count 4.93 10x3/uL (4.8-10.8)
[2025-08-14 05:27] LABS: Anion Gap 12 mmol/L (10-20); BUN (Urea Nitrogen) 21 mg/dL (8.4-25.7); Calc. Creatinine Clearance 72 mL/min (70-130); Calcium 8.7 mg/dL (7.8-10.44); Carbon Dioxide 24 mmol/L (23-31); Chloride 103 mmol/L (98-107); Glucose 115 mg/dL (80-115); Potassium 3.8 mmol/L (3.5-5.1); Sodium 135 mmol/L (136-145)
[2025-08-14 08:42] LABS: ALT (SGPT) 35 U/L (Less than 45); AST (SGOT) 45 U/L (11-34); Albumin 3.0 g/dL (3.1-4.5); Alkaline Phosphatase 236 U/L (40-110); Bilirubin, Direct 0.4 mg/dL (0.1-0.3); Bilirubin, Total 0.8 mg/dL (0.3-1.2)
[2025-08-15 05:27] LABS: #Basophils 0.04 10x3/uL (0.0-0.2); #Eosinophils 0.23 10x3/uL (0.0-0.7); #Monocytes 0.57 10x3/uL (0.11-0.59); #Neutrophils 3.23 10x3/uL (1.40-6.50); %Basophils 0.8 % (0.0-1.0); %Eosinophils 4.6 % (0.0-10.0); %Lymphocytes 18.2 % (21.0-51.0); %Monocytes 11.4 % (0.0-10.0); %Neutrophils 64.6 % (42.0-75.0); Hematocrit 41.8 % (42.0-52.0); Hemoglobin 13.8 g/dL (14.0-18.0); Mean Corpuscular Hemoglobin 29.5 pg (27.0-31.0); Mean Corpuscular Volume 89.3 fL (78.0-98.0); Platelet Count 234 10x3/uL (130-400); Red Blood Cell (RBC) Count 4.68 mill/uL (4.70-6.10); White Blood Cell (WBC) Count 5.00 10x3/uL (4.8-10.8)
[2025-08-15 05:52] LABS: Anion Gap 13 mmol/L (10-20); BUN (Urea Nitrogen) 24 mg/dL (8.4-25.7); Calc. Creatinine Clearance 82 mL/min (70-130); Calcium 9.0 mg/dL (7.8-10.44); Carbon Dioxide 26 mmol/L (23-31); Chloride 98 mmol/L (98-107); Glucose 97 mg/dL (80-115); Potassium 4.0 mmol/L (3.5-5.1); Sodium 133 mmol/L (136-145)
[2025-08-16 04:25] LABS: #Basophils 0.07 10x3/uL (0.0-0.2); #Eosinophils 0.19 10x3/uL (0.0-0.7); #Monocytes 0.97 10x3/uL (0.11-0.59); #Neutrophils 3.04 10x3/uL (1.40-6.50); %Basophils 1.3 % (0.0-1.0); %Eosinophils 3.4 % (0.0-10.0); %Lymphocytes 22.1 % (21.0-51.0); %Monocytes 17.5 % (0.0-10.0); %Neutrophils 55.0 % (42.0-75.0); Hematocrit 42.1 % (42.0-52.0); Hemoglobin 13.6 g/dL (14.0-18.0); Mean Corpuscular Hemoglobin 29.1 pg (27.0-31.0); Mean Corpuscular Volume 90.1 fL (78.0-98.0); Platelet Count 252 10x3/uL (130-400); Red Blood Cell (RBC) Count 4.67 mill/uL (4.70-6.10); White Blood Cell (WBC) Count 5.53 10x3/uL (4.8-10.8)
[2025-08-16 04:39] LABS: Anion Gap 15 mmol/L (10-20); BUN (Urea Nitrogen) 30 mg/dL (8.4-25.7); Calc. Creatinine Clearance 71 mL/min (70-130); Calcium 9.2 mg/dL (7.8-10.44); Carbon Dioxide 26 mmol/L (23-31); Chloride 96 mmol/L (98-107); Glucose 98 mg/dL (80-115); Potassium 3.8 mmol/L (3.5-5.1); Sodium 133 mmol/L (136-145)
[2025-08-16 19:22] VITALS: BP 108/61; TEMP 97.6
[2025-08-17] MEDS ORDERED: Furosemide 40 MG TAB PO SCH (07:30)
== END 2025-08-16 20:30 | disposition home or self-care (01) | DRG 291 ==
LOC: ERS 11:20 → ERHOLD 14:32 → 2NO 19:01
PROVIDERS: ADMIT Internal Medicine; ATTEND Internal Medicine
DX: I11.0 Hypertensive heart disease with heart failure (principal); I50.43 Acute on chronic combined systolic (congestive) and diastolic (congestive) heart failure; Q21.12 Patent foramen ovale; E78.5 Hyperlipidemia, unspecified; E03.9 Hypothyroidism, unspecified; I87.8 Other specified disorders of veins; I73.9 Peripheral vascular disease, unspecified; F41.9 Anxiety disorder, unspecified; F31.9 Bipolar disorder, unspecified; F20.9 Schizophrenia, unspecified; F17.210 Nicotine dependence, cigarettes, uncomplicated; Z96.652 Presence of left artificial knee joint; E87.6 Hypokalemia; E88.09 Other disorders of plasma-protein metabolism, not elsewhere classified; S80.02XA Contusion of left knee, initial encounter; M25.561 Pain in right knee; W01.0XXA Fall on same level from slipping, tripping and stumbling without subsequent striking against object, initial encounter; Z86.711 Personal history of pulmonary embolism; Z91.148 Patient's other noncompliance with medication regimen for other reason; Z79.899 Other long term (current) drug therapy; Z79.890 Hormone replacement therapy; Z79.01 Long term (current) use of anticoagulants; Z91.81 History of falling; Z71.6 Tobacco abuse counseling; Z71.51 Drug abuse counseling and surveillance of drug abuser; Z87.19 Personal history of other diseases of the digestive system
CPT/HCPCS: 36415; 70450; 71045; 80048; 80053; 80076; 83880; 84484; 85025; 93005; 93306; 93798; 96374; J1940

== ENCOUNTER 2025-10-14 13:00 | Emergency (ER) | payer MEDICARE, OTHER ==
[2025-10-14] MEDS ORDERED: Dexamethasone 10 MG/ML VIAL ONE (15:17)
== END 2025-10-14 15:31 | disposition home or self-care (01) ==
LOC: ERS 13:00
DX: M25.511 Pain in right shoulder (principal); M25.561 Pain in right knee; I11.0 Hypertensive heart disease with heart failure; I50.9 Heart failure, unspecified; E03.9 Hypothyroidism, unspecified; F17.210 Nicotine dependence, cigarettes, uncomplicated; Z79.890 Hormone replacement therapy
CPT/HCPCS: 93005; 96372; 99283; J1100